=== PATIENT | male | born 1990 | race Caucasian/White ===

== ENCOUNTER 2017-07-21 10:56 | Inpatient (IN) | payer BC, MEDICAID ==
--- NOTE | 2017-07-21 11:33 | ED ---
Psych HPI - General Chief Complaint: Psychiatric Symptoms Stated Complaint: MENTAL HEALTH Time Seen by Provider: 07/21/17 11:11 Source: patient, RN notes reviewed Mode of arrival: ambulatory Limitations: no limitations - History of Present Illness Initial Comments: 27-year-old male presents emergency Department for psychiatric evaluation. Patient states he is severely depressed, mother states is always tearful. He does see his primary care physician which he receives Paxil. He states he used to be on Klonopin. 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 Patient has a bowel bladder incontinence or retention. Patient states that he does not currently feel suicidal he states that he is depressed throat times he thinks he may be easier. Patient is not homicidal. Patient denies any fever, chills, chest pain or shortness of breath. - Related Data Home Medications Medication Instructions Recorded Confirmed Meloxicam [Meloxicam] 15 mg PO DAILY 07/21/17 07/21/17 Methocarbamol [Robaxin] 1,500 mg PO Q8H PRN 07/21/17 07/21/17 PARoxetine HCL [Paxil] 10 mg PO DAILY 07/21/17 07/21/17 Allergies Allergy/AdvReac Type Severity Reaction Status Date / Time Penicillins Allergy Unknown Verified 07/21/17 11:57 Childhood Review of Systems ROS Statement: Those systems with pertinent positive or pertinent negative responses have been documented in the HPI. ROS Other: All systems not noted in ROS Statement are negative. Past Medical History Past Medical History: Hypertension History of Any Multi-Drug Resistant Organisms: None Reported Past Surgical History: No Surgical Hx Reported Past Psychological History: ADD/ADHD, Anxiety, Bipolar, Depression Smoking Status: Current every day smoker Past Alcohol Use History: Occasional Past Drug Use History: Marijuana, Opiates General Exam Limitations: no limitations General appearance: alert, in no apparent distress Head exam: Present: atraumatic, normocephalic, normal inspection Eye exam: Present: normal appearance, PERRL, EOMI. Absent: scleral icterus, conjunctival injection, periorbital swelling ENT exam: Present: normal exam, normal oropharynx, mucous membranes moist Neck exam: Present: normal inspection, full ROM. Absent: tenderness, meningismus, lymphadenopathy Respiratory exam: Present: normal lung sounds bilaterally. Absent: respiratory distress, wheezes, rales, rhonchi, stridor Cardiovascular Exam: Present: regular rate, normal rhythm, normal heart sounds. Absent: systolic murmur, diastolic murmur, rubs, gallop, clicks GI/Abdominal exam: Present: soft, normal bowel sounds. Absent: distended, tenderness, guarding, rebound, rigid Neurological exam: Present: alert, oriented X3, CN II-XII intact Psychiatric exam: Present: anxious, other (Patient is tearful) Skin exam: Present: warm, dry, intact, normal color. Absent: rash Course Vital Signs 07/21/17 11:05 Temperature 96.8 F L Pulse Rate 94 Respiratory 18 Rate Blood Pressure 134/84 O2 Sat by Pulse 100 Oximetry Medical Decision Making - Medical Decision Making 27-year-old male was on for psychiatric evaluation. Patient was evaluated by EPS case discussed with on-call psychiatry. Patient will be admitted to the hospital at this time for further care. - Lab Data Lab Results 07/21/17 Range/Units 11:20 Urine Opiates Screen Not Detected (NotDetected) Ur Oxycodone Screen Not Detected (NotDetected) Urine Methadone Screen Not Detected (NotDetected) Ur Propoxyphene Screen Not Detected (NotDetected) Ur Barbiturates Screen Not Detected (NotDetected) U Tricyclic Antidepress Not Detected (NotDetected) Ur Phencyclidine Scrn Not Detected (NotDetected) Ur Amphetamines Screen Not Detected (NotDetected) U Methamphetamines Scrn Not Detected (NotDetected) U Benzodiazepines Scrn Detected H (NotDetected) Urine Cocaine Screen Detected H (NotDetected) U Marijuana (THC) Screen Detected H (NotDetected) Disposition Clinical Impression: Drug abuse, Bipolar disorder, Psychosis Disposition: ADMITTED IP TO THIS [facility] Condition: Stable Is patient prescribed a controlled substance at d/c from ED?: No Referrals: None,Stated [Primary Care Provider] - 1-2 days
[2017-07-21 12:03] LABS: Amphetamine Screen,Urine Not Detected (NotDetected); Barbiturate Screen,Urine Not Detected (NotDetected); Benzodiazepines Screen,Urine Detected (NotDetected); Cocaine Screen,Urine Detected (NotDetected); Methadone Screen, Urine Not Detected (NotDetected); Opiate Screen,Urine Not Detected (NotDetected); Oxycodone Screen, Urine Not Detected (NotDetected); Phencyclidine Screen,Urine Not Detected (NotDetected); Tricyclic Antidepressant,Urine Not Detected (NotDetected); Urn Cannabinoid Scrn Detected (NotDetected)
[2017-07-21] MEDS ORDERED: IBUPROFEN 600 MG TAB PO STA (12:38)
[2017-07-21] MEDS ORDERED: ZIPRASIDONE 20 MG VIAL IM STA (13:40)
[2017-07-21] MEDS ORDERED: NICOTINE 21MG/24HR PATCH TRANSDERM STA (13:40)
[2017-07-21] MEDS ORDERED: MAG HYDROX/AL HYDROX/SIMETH 30 ML CUP PO PRN (15:37)
[2017-07-21] MEDS ORDERED: MAGNESIUM HYDROXIDE 2,400 MG/10 ML CUP PO PRN (15:37)
[2017-07-21] MEDS ORDERED: ZIPRASIDONE 20 MG VIAL IM PRN (15:37)
[2017-07-21] MEDS ORDERED: LORazepam 2 MG/ML INJ IM PRN (15:39)
[2017-07-21 15:56] LABS: Appearance,Urine Clear (Clear); Bilirubin,Urine Negative (Negative); Blood,Urine Negative (Negative); Color,Urine Yellow; Glucose,Urine (UA) Negative (Negative); Ketones,Urine Negative (Negative); Leukocyte Esterase,Urine Negative (Negative); Nitrite,Urine Negative (Negative); Protein,Urine Negative (Negative); Urobilinogen,Urine <2.0 mg/dL (<2.0)
--- NOTE | 2017-07-21 20:12 | P.PN ---
Progress Note - Text Progress Note Date: 07/21/17 I was notified by RN to evaluate the patient for medical consultation and management. However patient has been deeply sedated due to aggressive behavior earlier and unable to participate in the interview at this time. Staff was made aware to notify sound physicians once the patient wakes up and is more stable for the interview and evaluation.
[2017-07-21] MEDS: ACETAMINOPHEN TAB 325 MG TAB PO PRN (23:16)
[2017-07-21] MEDS: LORazepam 1 MG TAB PO PRN (23:18)
[2017-07-22 07:12] VITALS: BP 111/65; PULSE 62; RESP 14; TEMP 98
--- NOTE | 2017-07-22 07:13 | P.MDCNMH ---
History of Present Illness H&P Date: 07/22/17 Chief Complaint: Medical management 27-year-old male was brought to the hospital for psychiatric evaluation. His mother brought him to the hospital saying that he is severely depressed and tearful most of the time. Patient is currently on Paxil she's been taking for 6 years now. However when I asked the patient he claimed that he would likely heart yesterday drinking and taking Vicodin and his mother didn't like it and decided to bring him to the hospital. Patient denies any suicidal or homicidal ideation. Patient denies any physical or medical concerns except for chronic low back pain , he has not seen an orthopedic infantry operations specialist yet, but he's been seeing a chiropractor who is doing some physical therapy on him. Patient claims that this chronic low back pain is related to a remote injury while playing football. He denies any focal neurologic deficits like weakness numbness or tingling in his extremities Review of Systems Constitutional: Patient denies fever, denies chills, denies night sweating, denies significant weight changes Eyes: Patient denies visual changes, denies eye pain ENT: Patient denies ear pain, denies rhinorrhea, denies sore throat Cardiovascular: Patient denies chest pain, denies exertional dyspnea, denies peripheral leg edema, denies orthopnea, denies paroxysmal nocturnal dyspnea Respiratory:Patient denies cough, denies wheezing, denies shortness of breath Gastrointestinal: Patient denies diarrhea, denies constipation, denies nausea , denies vomiting, denies abdominal pain Genitourinary: Patient denies dysuria, denies hematuria, denies changes in urinary habits, denies genital lesions Musculoskeletal: Patient denies muscle pain, chronic low back pain Psychiatric: Patient reports depressed mood, denies suicidal ideation, denies anxiety Endocrine: Patient denies heat intolerance, denies cold intolerance, denies excessive thirst, denies polyuria Neurological: Patient denies focal neurologic deficits, denies weakness, denies numbness, denies tingling Hem/Lymphatic: Patient denies bleeding tendency, denies bruising, denies swollen lymph glands Allergic/Immun: Patient denies recent allergic reactions Skin: Patient denies rashes, denies pruritis, denies ulcers Past Medical History Past Medical History: Hypertension History of Any Multi-Drug Resistant Organisms: None Reported Past Surgical History: No Surgical Hx Reported Past Psychological History: ADD/ADHD, Anxiety, Bipolar, Depression Smoking Status: Current every day smoker Past Alcohol Use History: Occasional Past Drug Use History: Marijuana, Opiates - Past Family History Family Additional Family Medical History / Comment(s): Hypertension runs in the family Medications and Allergies Home Medications Medication Instructions Recorded Confirmed Type Meloxicam [Meloxicam] 15 mg PO DAILY 07/21/17 07/21/17 History Methocarbamol [Robaxin] 1,500 mg PO Q8H PRN 07/21/17 07/21/17 History PARoxetine HCL [Paxil] 10 mg PO DAILY 07/21/17 07/21/17 History Allergies Allergy/AdvReac Type Severity Reaction Status Date / Time Penicillins Allergy Unknown Verified 07/21/17 11:57 Childhood Physical Exam Vitals: Vital Signs Temp Pulse Pulse Resp BP BP Pulse Ox 07/21/17 15:20 72 18 117/63 93 L 07/21/17 11:05 96.8 F L 94 18 134/84 100 Constitutional: No acute distress, conversant, pleasant Eyes: Anicteric sclerae, moist conjunctiva, no lid-lag Pupils equal round reactive to light ENMT: NC/AT Oropharynx clear, no erythema, or exudates Neck: Supple, FROM, no masses, or JVD No carotid bruits No thyromegaly Lungs: Clear to auscultation Clear to percussion Normal respiratory effort, no accessory muscle use Cardiovascular: Heart regular in rate and rhythm, No murmurs, gallops, or rubs No peripheral edema Abdominal: Soft Nontender, no guarding, rebound or rigidity Abdomen moving with respiration Normoactive bowel sounds No hepatomegaly, No splenomegaly No palpable mass No abdominal wall hernia noted Skin: Normal temperature, tone, texture, turgor No induration No subcutaneous nodules No rash, lesions No ulcers Extremities: No digital cyanosis No clubbing Pedal pulses intact and symmetrical Radial pulses intact and symmetrical No calf tenderness Psychiatric: Alert and oriented to person, place and time Appropriate affect fair judgment Neuro Muscles Strength 5/5 in all 4 extremities Sensation to light touch grossly present throughout No focal sensory deficits Lymphatics: no palpable cervical or supraclavicular , or inguinal lymph nodes Cranial Nerve Examination - Cranial Nerves Cranial Nerve II- Optic: Intact Cranial Nerve III- Oculomotor: Intact Cranial Nerve IV- Trochlear: Intact Cranial Nerve V- Trigeminal: Intact Cranial Nerve - Abducens: Intact Cranial Nerve VII- Facial: Intact Cranial Nerve VIII- Auditory: Intact Cranial Nerve IX- Glossopharyngeal: Intact Cranial Nerve X- Vagus: Intact Cranial Nerve XI- Accessory: Intact Cranial Nerve XII- Hypoglossal: Intact Results Labs: Abnormal Lab Results - Last 24 Hours (Table) 07/21/17 Range/Units 11:20 U Benzodiazepines Scrn Detected H (NotDetected) Urine Cocaine Screen Detected H (NotDetected) U Marijuana (THC) Screen Detected H (NotDetected) Assessment and Plan Plan: 27-year-old male with history of depression, was brought to the hospital for further evaluation by psychiatry due to severe depression. Patient denies any suicidal ideation. #Depression Management per psychiatry #Chronic low back pain I recommended the patient follow up with orthopedic spine as an outpatient #Tobacco smoking Patient counseled to quit smoking Nicotine replacement therapy offered #Alcohol abuse drinking Monitor for alcohol withdrawal symptoms Counseled to quit alcohol especially when on psychotropic medications #Polysubstance abuse Patient urine drug screen was positive for multiple substances Patient denies any recent use Patient again strongly counseled to quit drug of abuse #DVT prophylaxis low risk and ambulatory Thank you for allowing us to participate in the care of this patient. We will follow peripherally. Do not hesitate to contact us with questions. Someone can be reached from the [facility] hospitalist group at all hours of the day at [phone].
[2017-07-22 08:45] LABS: Basophils % (A) 1 %; Eosinophils # (A) 0.2 k/uL (0-0.7); Eosinophils % (A) 3 %; HCT 45.9 % (39.0-53.0); Lymphocytes # (A) 1.8 k/uL (1.0-4.8); Lymphocytes % (A) 25 %; MCH 30.2 pg (25.0-35.0); MCHC 32.7 g/dL (31.0-37.0); MCV 92.2 fL (80.0-100.0); Mean Platelet Volume 7.4; Monocytes # (A) 0.5 k/uL (0-1.0); Monocytes % (A) 7 %; Neutrophils # (A) 4.3 k/uL (1.3-7.7); Neutrophils % (A) 62 %; Platelet Count 273 k/uL (150-450); RBC 4.97 m/uL (4.30-5.90); RDW 12.3 % (11.5-15.5)
[2017-07-22 08:56] LABS: ALT 40 U/L (21-72); AST 39 U/L (17-59); Albumin 4.5 g/dL (3.5-5.0); Alkaline Phosphatase 66 U/L (38-126); Anion Gap 12 mmol/L; Blood Urea Nitrogen 15 mg/dL (9-20); Calcium 9.9 mg/dL (8.4-10.2); Carbon Dioxide 26 mmol/L (22-30); Chloride 102 mmol/L (98-107); Cholesterol 199 mg/dL (<200); Glucose 92 mg/dL (74-99); HDL Cholesterol 67 mg/dL (40-60); LDL Cholesterol,Calculated 111 mg/dL (0-99); Potassium 4.4 mmol/L (3.5-5.1); Sodium 140 mmol/L (137-145); Total Bilirubin 0.8 mg/dL (0.2-1.3); Total Protein 6.9 g/dL (6.3-8.2); Triglycerides 105 mg/dL (<150)
[2017-07-22] MEDS ORDERED: MELOXICAM 7.5 MG TAB PO SCH (09:00)
[2017-07-22] MEDS ORDERED: NICOTINE 14MG/24HR PATCH TRANSDERM SCH (09:00)
[2017-07-22] MEDS: LORazepam 1 MG TAB PO PRN (09:09)
[2017-07-22] MEDS: ACETAMINOPHEN TAB 325 MG TAB PO PRN (10:40)
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
--- NOTE | 2017-07-22 11:59 | P.DS ---
Providers Date of admission: 07/21/17 14:36 Expected date of discharge: 07/22/17 Attending physician: July Gillette MD Consults: 07/21/17 15:37 Consult Physician Routine Consulting Provider: Amanda Physician Consult Reason/Comments: Follow up H & P Do you want consulting provider notified?: Yes Primary care physician: Stated None Hospital Course: Discharge Diagnosis: Alcohol use disorder, mild; sedative use disorder, mild; cannabis use disorder mild; sedative withdrawal with perceptual disturbances; alcohol withdrawal with perceptual disturbances; social anxiety disorder by history Reason for Admission: Patient is a 27-year-old male who was brought to the emergency room by his mother because she noticed that he was talking to himself. She states that he had also not been eating or sleeping for several days. Patient reports that he had gone on a binge from Wednesday until Wednesday evening drinking alcohol, using Xanax and also used cocaine. He reports that he drank probably a fifth of alcohol and used 5 mg of Xanax and states that he also used cocaine something that he typically does not do. He states he uses alcohol and Xanax usually 3-4 times a month. Patient states that he went home from his friend's house where he had been using and his mother noticed that he was talking to no one, patient states he does not recall much other than that he was talking to his cat who wasn't there. Patient states that he had not been eating or sleeping from Wednesday through Wednesday and states that he started to try to cook when he came home and wasn't paying attention and apparently left the stove on. He reports that this is the first time he has used cocaine combined with alcohol and Xanax. Patient states he doesn't recall much else about those 2 days. Patient states that he has been using alcohol since age 19 , he states he restarted using it at 24 and drinks about a fifth a week. States that he typically uses about 5 mg of Xanax 2-3 times a month. States that he also uses marijuana on a daily basis to control his anxiety. Patient states that he has been on Paxil since the age of 22 for anxiety which she describes as an elevated heart rate and shaking and states that it occurs mostly when he is around people or needs to talk to people. He states that he has been using the Paxil with good relief stating he's less anxious and no longer has an increased heart rate. Patient states that he was on Xanax in the past for his anxiety, was prescribed it when he was 19 years of age. Patient does not endorse a history of suicidal ideation and denies any prior suicide attempts and does not endorse a symptoms of depression, nor telly nor psychosis in the past. Patient states that he has never had the symptoms that he had over the last 2 days before. Mental status on Admission: Appearance/Attitude: Patient is casually dressed, makes good eye contact and is cooperative. Behavior: Patient does not exhibit any psychomotor agitation or retardation. Speech/Language: Patient's speech is spontaneous of normal volume and rhythm and he is coherent Thought Process: Patient is goal-directed there is no evidence of loose association or flight of ideas Thought Content: Patient denies any auditory or visual hallucinations no delusions or paranoid ideation or elicited. Patient states that he doesn't have a clear memory of what occurred over the last several days, stating that he recalls talking to his cat when he Was not present and also leaving the stove on when he was trying to cook something for himself and then went and passed out. Patient states that he slept well here after receiving medication as well as his appetite is good. Suicidal/Homicidal Ideation: Patient denies any current suicidal or homicidal ideation Sensorium/Cognition: Patient is alert and oriented to person, place, and time and his recent and remote memory are grossly intact. Mood/Affect: Patient's mood is pleasant and his affect is appropriate Insight/Judgment: Patient's insight and judgment are fair Hospital Course: Patient was admitted on a voluntary basis, placed on routine observation in group and activity therapy were also ordered. Patient had routine laboratory studies and a medical consultation. Patient was continued on his meloxicam for his back pain. Patient was placed on Ativan on an as- needed basis for symptoms of withdrawal. Patient was given Ativan and Geodon in the emergency room prior to coming upstairs to the psychiatric unit and was sleeping through the evening. Patient on awakening this morning reported no further symptoms of talking to objects that weren't there, he states that he returned to his baseline mental status, he was not exhibiting any paranoid ideation, no depressive symptoms, no manic symptoms and he denied any auditory or visual hallucinations. Patient reported that he has also been treated in the past for social anxiety and reports taking Paxil 10 mg with good results. Patient had been using Xanax, alcohol and cocaine for 2 days prior to his admission. Patient reported that he was not having any suicidal ideation and felt ready for discharge. Allergies Penicillins Allergy (Verified 07/21/17 11:57) Unknown Childhood Laboratory Last Values WBC 7.0 k/uL (3.8-10.6) 07/22/17 08:23 RBC 4.97 m/uL (4.30-5.90) 07/22/17 08:23 Hgb 15.0 gm/dL (13.0-17.5) 07/22/17 08:23 Hct 45.9 % (39.0-53.0) 07/22/17 08:23 MCV 92.2 fL (80.0-100.0) 07/22/17 08:23 MCH 30.2 pg (25.0-35.0) 07/22/17 08:23 MCHC 32.7 g/dL (31.0-37.0) 07/22/17 08:23 RDW 12.3 % (11.5-15.5) 07/22/17 08:23 Plt Count 273 k/uL (150-450) 07/22/17 08:23 Neutrophils % 62 % 07/22/17 08:23 Lymphocytes % 25 % 07/22/17 08:23 Monocytes % 7 % 07/22/17 08:23 Eosinophils % 3 % 07/22/17 08:23 Basophils % 1 % 07/22/17 08:23 Neutrophils # 4.3 k/uL (1.3-7.7) 07/22/17 08:23 Lymphocytes # 1.8 k/uL (1.0-4.8) 07/22/17 08:23 Monocytes # 0.5 k/uL (0-1.0) 07/22/17 08:23 Eosinophils # 0.2 k/uL (0-0.7) 07/22/17 08:23 Basophils # 0.0 k/uL (0-0.2) 07/22/17 08:23 Sodium 140 mmol/L (137-145) 07/22/17 08:23 Potassium 4.4 mmol/L (3.5-5.1) 07/22/17 08:23 Chloride 102 mmol/L (98-107) 07/22/17 08:23 Carbon Dioxide 26 mmol/L (22-30) 07/22/17 08:23 Anion Gap 12 mmol/L 07/22/17 08:23 BUN 15 mg/dL (9-20) 07/22/17 08:23 Creatinine 0.87 mg/dL (0.66-1.25) 07/22/17 08:23 Est GFR (CKD-EPI)AfAm >90 (>60 ml/min/1.73 sqM) 07/22/17 08:23 Est GFR (CKD-EPI)NonAf >90 (>60 ml/min/1.73 sqM) 07/22/17 08:23 Glucose 92 mg/dL (74-99) 07/22/17 08:23 Calcium 9.9 mg/dL (8.4-10.2) 07/22/17 08:23 Total Bilirubin 0.8 mg/dL (0.2-1.3) 07/22/17 08:23 AST 39 U/L (17-59) 07/22/17 08:23 ALT 40 U/L (21-72) 07/22/17 08:23 Alkaline Phosphatase 66 U/L (38-126) 07/22/17 08:23 Total Protein 6.9 g/dL (6.3-8.2) 07/22/17 08:23 Albumin 4.5 g/dL (3.5-5.0) 07/22/17 08:23 Triglycerides 105 mg/dL (<150) 07/22/17 08:23 Cholesterol 199 mg/dL (<200) 07/22/17 08:23 LDL Cholesterol, Calc 111 mg/dL (0-99) H 07/22/17 08:23 HDL Cholesterol 67 mg/dL (40-60) H 07/22/17 08:23 TSH 1.150 mIU/L (0.465-4.680) 07/22/17 08:23 Urine Color Yellow 07/21/17 11:20 Urine Appearance Clear (Clear) 07/21/17 11:20 Urine pH 6.0 (5.0-8.0) 07/21/17 11:20 Ur Specific [place] 1.010 (1.001-1.035) 07/21/17 11:20 Urine Protein Negative (Negative) 07/21/17 11:20 Urine Glucose (UA) Negative (Negative) 07/21/17 11:20 Urine Ketones Negative (Negative) 07/21/17 11:20 Urine Blood Negative (Negative) 07/21/17 11:20 Urine Nitrite Negative (Negative) 07/21/17 11:20 Urine Bilirubin Negative (Negative) 07/21/17 11:20 Urine Urobilinogen <2.0 mg/dL (<2.0) 07/21/17 11:20 Ur Leukocyte Esterase Negative (Negative) 07/21/17 11:20 Urine Opiates Screen Not Detected (NotDetected) 07/21/17 11:20 Ur Oxycodone Screen Not Detected (NotDetected) 07/21/17 11:20 Urine Methadone Screen Not Detected (NotDetected) 07/21/17 11:20 Ur Propoxyphene Screen Not Detected (NotDetected) 07/21/17 11:20 Ur Barbiturates Screen Not Detected (NotDetected) 07/21/17 11:20 U Tricyclic Antidepress Not Detected (NotDetected) 07/21/17 11:20 Ur Phencyclidine Scrn Not Detected (NotDetected) 07/21/17 11:20 Ur Amphetamines Screen Not Detected (NotDetected) 07/21/17 11:20 U Methamphetamines Scrn Not Detected (NotDetected) 07/21/17 11:20 U Benzodiazepines Scrn Detected (NotDetected) H 07/21/17 11:20 Urine Cocaine Screen Detected (NotDetected) H 07/21/17 11:20 U Marijuana (THC) Screen Detected (NotDetected) H 07/21/17 11:20 Discharge Mental Status: Appearance/Attitude: Patient is casually dressed, makes good eye contact and is cooperative. Behavior: Patient does not exhibit any psychomotor agitation or retardation. Speech/Language: Patient's speech is spontaneous of normal volume and rhythm and he is coherent Thought Process: Patient is goal-directed there is no evidence of loose association or flight of ideas Thought Content: Patient denies any auditory or visual hallucinations no delusions or paranoid ideation or elicited. Patient states that he doesn't have a clear memory of what occurred over the last several days, stating that he recalls talking to his cat when he Was not present and also leaving the stove on when he was trying to cook something for himself and then went and passed out. Patient states that he slept well here after receiving medication as well as his appetite is good. Suicidal/Homicidal Ideation: Patient denies any current suicidal or homicidal ideation Sensorium/Cognition: Patient is alert and oriented to person, place, and time and his recent and remote memory are grossly intact. Mood/Affect: Patient's mood is pleasant and his affect is appropriate Insight/Judgment: Patient's insight and judgment are fair Risk Assessment: Patient's risk for self harm is moderate should he continue to use alcohol and drugs and not be compliant with follow-up Discharge Plan: Patient will be discharged to return home to live with his mother. He will continue on Paxil 10 mg as an outpatient basis and return to his Robaxin, meloxicam and Zanaflex for his back pain. Patient will follow-up with [facility] going to their outpatient intensive rehab program and has an appointment to begin tomorrow. Patient was encouraged to remain sober and avoid all alcohol and drugs as well as beginning to attend AA meetings on a daily basis. Patient was not given any prescriptions on discharge as he states this medication at home. Patient Condition at Discharge: Stable Plan - Discharge Summary New Discharge Prescriptions: Continue PARoxetine HCL [Paxil] 10 mg PO DAILY Methocarbamol [Robaxin] 1,500 mg PO Q8H PRN PRN Reason: Muscle Pain Meloxicam 15 mg PO DAILY Discharge Medication List Meloxicam 15 mg PO DAILY 07/21/17 [History] Methocarbamol [Robaxin] 1,500 mg PO Q8H PRN 07/21/17 [History] PARoxetine HCL [Paxil] 10 mg PO DAILY 07/21/17 [History] Follow up Appointment(s)/Referral(s): [facility] [Other] - 07/23/17 1:00 pm None,Stated [Primary Care Provider] - 1-2 days Discharge Disposition: HOME SELF-CARE
[2017-07-22 18:51] LABS: Hemoglobin A1C 5.3 % (4.0-6.0)
== END 2017-07-22 12:20 | disposition home or self-care (01) | DRG 885 ==
LOC: EC 10:56 → 3MHU 14:36
PROVIDERS: ADMIT Psychiatry & Neurology Psychiatry; ATTEND Psychiatry & Neurology Psychiatry
DX: F31.9 Bipolar disorder, unspecified (principal); F13.232 Sedative, hypnotic or anxiolytic dependence with withdrawal with perceptual disturbance; F10.232 Alcohol dependence with withdrawal with perceptual disturbance; F40.10 Social phobia, unspecified; F12.90 Cannabis use, unspecified, uncomplicated; M54.5 Low back pain; G89.29 Other chronic pain; F90.9 Attention-deficit hyperactivity disorder, unspecified type; I10 Essential (primary) hypertension; F41.9 Anxiety disorder, unspecified; Z79.899 Other long term (current) drug therapy; Z81.8 Family history of other mental and behavioral disorders; Z71.6 Tobacco abuse counseling; Z71.41 Alcohol abuse counseling and surveillance of alcoholic
CPT/HCPCS: 80053; 80061; 80306; 81003; 82075; 83036; 84443; 85025; 96372; 99285

== ENCOUNTER → 2018-04-16 | Outpatient (CLI) | payer OTHER ==
--- NOTE | 2018-04-16 09:13 | MR ---
MR lumbar spine wo con Low back pain for years, getting worse, no previous MRI Multiplanar, multiecho imaging of the lumbar spine was obtained without contrast on a 3 Lisa magnet. REFERENCE: None. FINDINGS: Paraspinal soft tissues are normal. Vertebral body height and alignment are maintained. There is a prominent Schmorl's node in the superi or endplate of L2. Cord signal is maintained. The conus ends normally at the level of the L1-2 disc. At T12-L1, no definite abnormality is seen. At L1-2, there is disc space loss and disc desiccation. Intervertebral foramina appear reasonably wel l-maintained. There is a bilobed disc displacement. There is minimal hypertrophic change and capsulit is within the facets. At L2-3, the intervertebral foramina are well maintained. There is no significant compressive discopa thy. There is minimal hypertrophic change and capsulitis within the facets. At L3-4, there is minimal hypertrophic change and capsulitis within the facets. At L4-5, there is minimal capsulitis and hypertrophic change in the facets. At L5-S1, the intervertebral foramina are well maintained. There is a left paracentral disc protrusio n deforming the thecal sac and impinging upon the traversing left S1 nerve root. This appears to spar e the exiting L5 nerve root.. IMPRESSION: 1. LEFT PARACENTRAL DISC PROTRUSION, L5-S1 IMPINGING UPON THE LEFT S1 NERVE ROOT. 2. DIFFUSE FACET ARTHROPATHY. 3. PROMINENT SCHMORL'S NODE IN THE SUPERIOR ENDPLATE OF L2.
== END | disposition home or self-care (01) ==
LOC: RADMRIMAIN 08:09
PROVIDERS: ATTEND Family Medicine
DX: M51.17 Intervertebral disc disorders with radiculopathy, lumbosacral region (principal); M46.96 Unspecified inflammatory spondylopathy, lumbar region; M51.46 Schmorl's nodes, lumbar region
CPT/HCPCS: 72148

== ENCOUNTER 2018-08-30 14:05 | Emergency (ER) | payer OTHER ==
[2018-08-30] MEDS ORDERED: LIDOCAINE 5% PATCH TOPICAL STA (16:26)
== END 2018-08-30 16:30 ==
LOC: EC 14:05
DX: M54.5 Low back pain (principal); M62.830 Muscle spasm of back; F41.9 Anxiety disorder, unspecified; F32.9 Major depressive disorder, single episode, unspecified; F17.200 Nicotine dependence, unspecified, uncomplicated; Z79.899 Other long term (current) drug therapy
CPT/HCPCS: 99283

== ENCOUNTER 2018-11-19 07:30 | Emergency (ER) | payer OTHER ==
[2018-11-19] MEDS ORDERED: methylPREDNISolone SOD SUCCI 125 MG/2 ML VIAL IM ONE (07:45)
[2018-11-19] MEDS ORDERED: ORPHENADRINE 30 MG/ML 2 ML VIAL IM STA (07:45)
[2018-11-19] MEDS ORDERED: KETOROLAC 60 MG/2 ML VIAL IM STA (07:45)
--- NOTE | 2018-11-19 07:48 | ED ---
Back Pain HPI - General Chief Complaint: Back Pain/Injury Stated Complaint: back pain Time Seen by Provider: 11/19/18 07:39 Source: patient, RN notes reviewed, old records reviewed Limitations: no limitations - History of Present Illness Initial Comments: Is a 28-year-old male presents emergency department today for acute exacerbation of chronic back pain. 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 Patient reports he felt a pop and snap in his back. Patient reports that since that time has had increased pain rating down his right leg. He denies saddle anesthesias. Patient reports that he is seen by [place] [facility] specialist Dr. Sam. He started prescribed [place] and naproxen for pain. Patient states that he has had no abdominal pain. Denies changes in urination. - Related Data Home Medications Medication Instructions Recorded Confirmed L.acidoph,Paracasei, B.lactis 1 cap PO DAILY 05/26/18 11/19/18 [Probiotic] Baclofen [Lioresal] 20 mg PO BID 11/19/18 11/19/18 HYDROcodone/APAP 7.5-325MG [[place] 1 tab PO TID PRN 11/19/18 11/19/18 7.5-325] Naproxen 500 mg PO BID PRN 11/19/18 11/19/18 PARoxetine [Paxil] 20 mg PO DAILY 11/19/18 11/19/18 Previous Rx's Medication Instructions Recorded Cyclobenzaprine [Flexeril] 10 mg PO TID #20 tab 11/19/18 Dexamethasone 0.75 mg PO DAILY #12 tab 11/19/18 Allergies Allergy/AdvReac Type Severity Reaction Status Date / Time Penicillins Allergy Rash/Hives Verified 11/19/18 08:22 Review of Systems ROS Statement: Those systems with pertinent positive or pertinent negative responses have been documented in the HPI. ROS Other: All systems not noted in ROS Statement are negative. Past Medical History Past Medical History: Asthma, Hypertension, Musculoskeletal Disorder Additional Past Medical History / Comment(s): ON RX FOR HTN IN PAST. Change in bowel movements and constipation, CHRONIC. HERNIATED DISCS, SEEN BY [facility] RECENTLY. recent sinus infection tx with antibiotics and steroid pack 03/2018. History of Any Multi-Drug Resistant Organisms: None Reported Past Surgical History: No Surgical Hx Reported Additional Past Surgical History / Comment(s): wisdom teeth Past Anesthesia/Blood Transfusion Reactions: Previous Problems w/ Anesthesia Additional Past Anesthesia/Blood Transfusion Reaction / Comment(s): had difficulty when coming out of anesthesia with emotional response and crying Past Psychological History: ADD/ADHD, Anxiety, Bipolar, Depression Smoking Status: Current every day smoker Past Alcohol Use History: None Reported Past Drug Use History: None Reported - Past Family History Family Additional Family Medical History / Comment(s): Hypertension runs in the family General Exam - General Exam Comments Initial Comments: 28-year-old male. No distress. Limitations: no limitations General appearance: alert, in no apparent distress Head exam: Present: atraumatic, normocephalic, normal inspection Eye exam: Present: normal appearance, PERRL, EOMI. Absent: scleral icterus, conjunctival injection, periorbital swelling ENT exam: Present: normal exam, mucous membranes moist Neck exam: Present: normal inspection. Absent: tenderness, meningismus, lymphadenopathy Respiratory exam: Present: normal lung sounds bilaterally. Absent: respiratory distress, wheezes, rales, rhonchi, stridor Cardiovascular Exam: Present: regular rate, normal rhythm, normal heart sounds. Absent: systolic murmur, diastolic murmur, rubs, gallop, clicks GI/Abdominal exam: Present: soft, normal bowel sounds. Absent: distended, tenderness, guarding, rebound, rigid Extremities exam: Present: normal inspection, full ROM, normal capillary refill. Absent: tenderness, pedal edema, joint swelling, calf tenderness Back exam: Present: normal inspection Neurological exam: Present: alert, oriented X3, CN II-XII intact Psychiatric exam: Present: normal affect Skin exam: Present: warm, dry, intact, normal color. Absent: rash Course Vital Signs 11/19/18 07:34 Temperature 97.5 F L Pulse Rate 77 Respiratory 18 Rate Blood Pressure 138/90 O2 Sat by Pulse 100 Oximetry Medical Decision Making - Medical Decision Making Patient is a 28-year-old male presents to return today for acute exacerbation of chronic back pain. He states it felt like a pop and twist when he was lifting at work. This time patient's lumbar spine x-rays negative for any acute process. Assessment tenderness over L4-L5. Patient given I am slight Medrol Toradol Norflex. I discussed the Patient should take this at home pain medicine. We'll prescribe steroids and anti-inflammatory medicine for Patient. Discussed appropriate PCP follow-up. - Radiology Data Radiology results: report reviewed Normal lumbar spine x-ray. Disposition Clinical Impression: Acute exacerbation of chronic low back pain Disposition: HOME SELF-CARE Condition: Good Instructions (If sedation given, give patient instructions): Acute Low Back Pain (ED) Additional Instructions: Patient advised to have close follow-up with primary care doctor. Take medication as perscribed. Prescriptions: Dexamethasone 0.75 mg PO DAILY #12 tab Cyclobenzaprine [Flexeril] 10 mg PO TID #20 tab Is patient prescribed a controlled substance at d/c from ED?: No Referrals: Diane Jesus DO [Primary Care Provider] - 1-2 days Time of Disposition: 08:37
--- NOTE | 2018-11-19 08:27 | XR ---
EXAMINATION TYPE: XR lumbar spine 2 or 3V DATE OF EXAM: 11/19/2018 COMPARISON: None HISTORY: Pain TECHNIQUE: Three-view lumbar spine FINDINGS: There 5 lumbar-type vertebral bodies. The L1 transverse processes articulating. Pedicles ar e intact. Disc heights are preserved. Vertebral body heights are preserved. Alignment is normal. IMPRESSION: 1. No acute osseous abnormality three-view lumbar spine.
[2018-11-19 08:56] VITALS: BP 136/88; PULSE 78; RESP 14; TEMP 98.6
== END 2018-11-19 08:50 | disposition home or self-care (01) ==
LOC: EC 07:30
DX: G89.29 Other chronic pain (principal); M54.5 Low back pain; F41.9 Anxiety disorder, unspecified; F17.200 Nicotine dependence, unspecified, uncomplicated; Z79.899 Other long term (current) drug therapy; Z88.0 Allergy status to penicillin; Z53.29 Procedure and treatment not carried out because of patient's decision for other reasons
CPT/HCPCS: 72100; 99284; 96372 ×2; J2360; J2930

== ENCOUNTER 2019-07-25 13:05 | Emergency (ER) | payer OTHER ==
[2019-07-25 13:10] VITALS: BP 133/76; PULSE 107; RESP 20; TEMP 99.7
[2019-07-25] MEDS ORDERED: DEXAMETHASONE 4 MG TAB PO STA (13:57)
[2019-07-25] MEDS ORDERED: CLINDAMYCIN 150 MG CAP PO STA (14:14)
[2019-07-25] MEDS ORDERED: ACETAMINOPHEN TAB 325 MG TAB PO STA (14:14)
--- NOTE | 2019-07-25 14:14 | ED ---
ENT HPI - General Chief complaint: ENT Stated complaint: fever/sore throat Time Seen by Provider: 07/25/19 13:15 Source: patient Mode of arrival: ambulatory Limitations: no limitations - History of Present Illness Initial comments: 29-year-old male presenting today for chief complaint of sore throat and enlarged tonsils. Patient states his history of large tonsils. The stones. Patient states the past 2 days he has noticed pain pain with swallowing states it feels like his swallowing glass. Patient states she has had a fever for the past day T-max of 102.2. Patient denies any cough congestion body aches or shortness of breath. Patient states it feels similar 20s of pharyngitis in the past. Patient states he was supposed to see ENT when he was a child but never did> patient has no additional complaints, no diarrhea, abdominal pain or vomiting. He denies drooling, inability to tolerate oral intake or voice changes. Patient does not appear in distress on arrival. Has low grade fever, HR slightly elevated. But he appears well nontoxic, no distress. - Related Data Home Medications Medication Instructions Recorded Confirmed L.acidoph,Paracasei, B.lactis 1 cap PO DAILY 05/26/18 11/19/18 [Probiotic] Baclofen [Lioresal] 20 mg PO BID 11/19/18 11/19/18 HYDROcodone/APAP 7.5-325MG [[place] 1 tab PO TID PRN 11/19/18 11/19/18 7.5-325] Naproxen 500 mg PO BID PRN 11/19/18 11/19/18 PARoxetine [Paxil] 20 mg PO DAILY 11/19/18 11/19/18 Previous Rx's Medication Instructions Recorded Cyclobenzaprine [Flexeril] 10 mg PO TID #20 tab 11/19/18 Dexamethasone 0.75 mg PO DAILY #12 tab 11/19/18 Clindamycin [Cleocin] 300 mg PO Q6H 7 Days #56 capsule 07/25/19 Allergies Allergy/AdvReac Type Severity Reaction Status Date / Time Penicillins Allergy Rash/Hives Verified 07/25/19 13:09 Review of Systems ROS Statement: Those systems with pertinent positive or pertinent negative responses have been documented in the HPI. ROS Other: All systems not noted in ROS Statement are negative. Past Medical History Past Medical History: Asthma, Hypertension, Musculoskeletal Disorder Additional Past Medical History / Comment(s): ON RX FOR HTN IN PAST. Change in bowel movements and constipation, CHRONIC. HERNIATED DISCS, SEEN BY [facility] RECENTLY. recent sinus infection tx with antibiotics and steroid pack 03/2018. History of Any Multi-Drug Resistant Organisms: None Reported Past Surgical History: No Surgical Hx Reported Additional Past Surgical History / Comment(s): wisdom teeth Past Anesthesia/Blood Transfusion Reactions: Previous Problems w/ Anesthesia Additional Past Anesthesia/Blood Transfusion Reaction / Comment(s): had difficulty when coming out of anesthesia with emotional response and crying Past Psychological History: ADD/ADHD, Anxiety, Bipolar, Depression Smoking Status: Current every day smoker Past Alcohol Use History: None Reported Past Drug Use History: None Reported - Past Family History Family Additional Family Medical History / Comment(s): Hypertension runs in the family General Exam - General Exam Comments Initial Comments: General: The patient is awake and alert, in no distress, and does not appear acutely ill. Eye: Pupils are equal, round and reactive to light, extra-ocular movements are intact. No nystagmus. There is normal conjunctiva bilaterally. No signs of icterus. Ears, nose, mouth and throat: There are moist mucous membranes oropharynx is erythematous with bilateral tonsillar enlargement. No evidence of peritonsillar abscess is evident on direct visualization. Patient has tonsillar exudates. Patient uvula midline, mild uvulitis. Neck supple, there is no tenderness or JVD. No anterior or posterior lymphadenopathy. No tripoding no drooling no trismus. Patient is tolerating oral intake without difficulty. Cardiovascular: There is a regular rate and rhythm. No murmur, rub or gallop is appreciated. Respiratory: Lungs are clear to auscultation, respirations are non-labored, breath sounds are equal. No wheezes, stridor, rales, or rhonchi. Musculoskeletal: Normal ROM, no tenderness. Strength 5/5. Sensation intact. Radial pulses equal bilaterally 2+. Neurological: A&O x 3. CN II-XII intact grossly, There are no obvious motor or sensory deficits. Coordination appears grossly intact. Speech is normal. Skin: Skin is warm and dry and no rashes or lesions are noted. Psychiatric: Cooperative, appropriate mood & affect, normal judgment. Limitations: no limitations Course Vital Signs 07/25/19 13:06 Temperature 99.7 F H Pulse Rate 107 H Respiratory 20 Rate Blood Pressure 133/76 O2 Sat by Pulse 97 Oximetry Medical Decision Making - Medical Decision Making 29-year-old male presenting today for chief complaint of sore throat. Patient has tonsillar exudates. Redness uvula is midline no evidence of peritonsillar abscess. Patient strep rapid (-). Culture pending. Covid 19 (-). Patient will be initiated on clindamycin given his PCN allergy. Patient is to f/u with ENT, return parameters were discussed at great length> patient verbalized understanding. Discussed case wtih attending patient discharged appearing well. - Lab Data Lab Results 07/25/19 Range/Units 13:40 Coronavirus (PCR) Not Detected (Not Detectd) Group A Strep Rapid Negative (Negative) Disposition Clinical Impression: Pharyngitis, Hx of fever Disposition: HOME SELF-CARE Condition: Good Additional Instructions: Please use medication as discussed. Please follow-up with family doctor in the next 2 days, ENT in next week. Please return to emergency room if the symptoms increase or worsen or for any other concerns. Prescriptions: Clindamycin [Cleocin] 300 mg PO Q6H 7 Days #56 capsule Is patient prescribed a controlled substance at d/c from ED?: No Referrals: Diane Jesus DO [Primary Care Provider] - 1-2 days Orlando Reed MD [STAFF PHYSICIAN] - 1-2 days Time of Disposition: 14:13
== END 2019-07-25 14:21 | disposition home or self-care (01) ==
LOC: EC 13:05
DX: Z03.818 Encounter for observation for suspected exposure to other biological agents ruled out (principal); J02.9 Acute pharyngitis, unspecified; F41.9 Anxiety disorder, unspecified; F31.9 Bipolar disorder, unspecified; F17.200 Nicotine dependence, unspecified, uncomplicated; Z79.899 Other long term (current) drug therapy; Z88.0 Allergy status to penicillin
CPT/HCPCS: 87081; 87430; 87635; 99283; J8540

== ENCOUNTER → 2019-08-29 | Outpatient (CLI) | payer OTHER | END | disposition home or self-care (01) | LOC: LABWHC1 08:32 | PROVIDERS: ATTEND Surgery | DX: Z11.59 Encounter for screening for other viral diseases (principal) ==

== ENCOUNTER 2019-09-01 10:48 | Day surgery (SDC) | payer OTHER ==
[2019-08-31 11:09] VITALS: BMI 29.6
[~2019-09-01 10:48] MED LIST: LACTATED RINGERS 1,000 ML IV SCH
[2019-09-01 11:14] VITALS: RESP 18; TEMP 97.7
[2019-09-01] MEDS ORDERED: LIDOCAINE 1% (10MG/ML) FOR IV START INTRADERMA ONE (11:15)
[2019-09-01 11:20] LABS: Glucose,Whole Blood 100 mg/dL (75-99)
--- NOTE | 2019-09-01 12:06 | P.GSHP ---
History of Present Illness H&P Date: 09/01/19 Chief Complaint: Constipation This is a 29-year-old male been sick for colonoscopy. Patient has issues constipation and irritable bowel syndrome. Past Medical History Past Medical History: Asthma, GERD/Reflux, Hypertension, Musculoskeletal Disorder Additional Past Medical History / Comment(s): HX HTN-(NO CURRENT MEDS)., HERNIATED DISCS WITH BACK PAIN, CHRONIC CONSTIPATION (HX OF ENEMA USE AND HOSPITALIZATION)., STATES HX OF PHARYNGITIS AND ENLARGED TONSILS TX RECENTLY. History of Any Multi-Drug Resistant Organisms: None Reported Past Surgical History: No Surgical Hx Reported Additional Past Surgical History / Comment(s): wisdom teeth Past Anesthesia/Blood Transfusion Reactions: Previous Problems w/ Anesthesia Additional Past Anesthesia/Blood Transfusion Reaction / Comment(s): difficulty coming out of anesthesia with emotional response and crying when wisdom teeth removed. Past Psychological History: ADD/ADHD, Anxiety, Bipolar, Depression Smoking Status: Current every day smoker Past Alcohol Use History: None Reported Additional Past Alcohol Use History / Comment(s): Smoker since 2008, 1 - 1 1/2ppd Past Drug Use History: Marijuana, Opiates Additional Drug Use History / Comment(s): no current use. - Past Family History Family Additional Family Medical History / Comment(s): Hypertension runs in the family Medications and Allergies Home Medications Medication Instructions Recorded Confirmed Type L.acidoph,Paracasei, B.lactis 1 cap PO DAILY 05/26/18 09/01/19 History [Probiotic] Baclofen [Lioresal] 20 mg PO BID 11/19/18 09/01/19 History Cyclobenzaprine [Flexeril] 10 mg PO TID #20 tab 11/19/18 09/01/19 Rx HYDROcodone/APAP 7.5-325MG [[place] 1 tab PO TID PRN 11/19/18 09/01/19 History 7.5-325] Naproxen 500 mg PO DIRECTED PRN 11/19/18 09/01/19 History PARoxetine [Paxil] 20 mg PO DAILY 11/19/18 09/01/19 History Albuterol Sulfate [Proair Hfa] 1 - 2 puff INHALATION Q6HR PRN 08/31/19 09/01/19 History Omeprazole 20 mg PO DIRECTED PRN 08/31/19 09/01/19 History traMADol HCL [Ultram] 50 mg PO DAILY 08/31/19 09/01/19 History Allergies Allergy/AdvReac Type Severity Reaction Status Date / Time Penicillins Allergy Rash/Hives Verified 09/01/19 11:08 Surgical - Exam Vital Signs Temp Pulse Resp BP Pulse Ox 97.7 F 83 18 141/83 97 09/01/19 11:12 09/01/19 11:12 09/01/19 11:12 09/01/19 11:12 09/01/19 11:12 - General well developed, well nourished, no distress - Eyes PERRL - ENT normal pinna - Neck no masses - Respiratory normal expansion - Cardiovascular Rhythm: regular - Abdomen Abdomen: soft, non tender Results - Labs Abnormal Lab Results - Last 24 Hours (Table) 09/01/19 Range/Units 11:18 POC Glucose (mg/dL) 100 H (75-99) mg/dL Assessment and Plan Assessment: History constipation, dull pain. We'll perform colonoscopy.
[2019-09-01] MEDS ORDERED: PROPOFOL 10 MG/ML 20 ML VIAL IV ONE (12:07)
--- NOTE | 2019-09-01 12:17 | P.OP ---
Date of Procedure: 09/01/19 Preoperative Diagnosis: Constipation Postoperative Diagnosis: Normal colonoscopy Procedure(s) Performed: Colonoscopy Anesthesia: MAC Surgeon: Davis Bianchi Pathology: none sent Condition: stable Disposition: PACU Description of Procedure: PROCEDURE: The patient was placed on the endoscopy table in the lateral position. Digital rectal examination was performed which revealed no abnormalities. The prostate was symmetrical without nodules. Flexible colonoscope was then placed in the patient's anus and passed throughout the entire colon. The ileocecal valve was visualized. The cecum, ascending, transverse, descending and sigmoid colon were normal. The rectum was normal as well. There were no masses, polyps or diverticula noted in the entire colon.
[2019-09-01 13:00] VITALS: BP 119/78; PULSE 65
== END 2019-09-01 13:12 | disposition home or self-care (01) ==
LOC: ORWHC2ENDO 10:48
PROVIDERS: ATTEND Surgery
DX: K59.09 Other constipation (principal); K58.9 Irritable bowel syndrome, unspecified; J45.909 Unspecified asthma, uncomplicated; K21.9 Gastro-esophageal reflux disease without esophagitis; I10 Essential (primary) hypertension; M51.9 Unspecified thoracic, thoracolumbar and lumbosacral intervertebral disc disorder; F90.9 Attention-deficit hyperactivity disorder, unspecified type; F41.9 Anxiety disorder, unspecified; F31.9 Bipolar disorder, unspecified; F17.210 Nicotine dependence, cigarettes, uncomplicated; Z87.09 Personal history of other diseases of the respiratory system; Z98.890 Other specified postprocedural states; Z91.89 Other specified personal risk factors, not elsewhere classified; Z79.899 Other long term (current) drug therapy; Z79.891 Long term (current) use of opiate analgesic; Z79.1 Long term (current) use of non-steroidal anti-inflammatories (NSAID); Z88.0 Allergy status to penicillin; Z82.49 Family history of ischemic heart disease and other diseases of the circulatory system
CPT/HCPCS: 45378; J2704

== ENCOUNTER 2020-04-20 03:25 | Emergency (ER) | payer OTHER ==
[2020-04-20 03:36] VITALS: TEMP 97.9
[2020-04-20] MEDS ORDERED: ORPHENADRINE 30 MG/ML 2 ML VIAL IM STA (04:10)
[2020-04-20] MEDS ORDERED: KETOROLAC 15 MG/ML 1 ML VIAL IVP STA (04:10)
[2020-04-20] MEDS ORDERED: methylPREDNISolone SOD SUCCI 125 MG/2 ML VIAL IM ONE (04:10)
[2020-04-20] MEDS ORDERED: KETOROLAC 15 MG/ML 1 ML VIAL IM STA (04:13)
--- NOTE | 2020-04-20 04:31 | ED ---
Back Pain HPI - General Chief Complaint: Back Pain/Injury Stated Complaint: Back Pain Time Seen by Provider: 04/20/20 03:26 Source: patient - History of Present Illness Initial Comments: This patient is 30-year-old man with history of previous sciatic nerve pain who presents with a flareup of the same. The patient states that he had been moving some bending and lifting a few days ago and then had onset of pain. He was seen by his physician and had Toradol shot. Patient also was seen by chiropractor. Patient states he did have some mild improvement but still is having severe pain. The pain radiates to his right leg. He is not having any weakness. No change in bladder or bowel function. No saddle anesthesia. Patient states with his previous flareup she had epidural shot that seemed to help and he is going to follow with his specialist and see about having this MD Complaint: back pain, back injury Onset/Timin -: days(s) Similar Symptoms Previously: Yes Place: home Radiation: right leg Severity: severe Quality: burning Consistency: constant Worsens With: movement, sitting upright Context: turning/twisting Associated Symptoms: denies other symptoms Treatments Prior to Arrival: NSAIDS, other - Related Data Home Medications Medication Instructions Recorded Confirmed L.acidoph,Paracasei, B.lactis 1 cap PO DAILY 05/26/18 09/01/19 [Probiotic] Baclofen [Lioresal] 20 mg PO BID 11/19/18 09/01/19 HYDROcodone/APAP 7.5-325MG [[place] 1 tab PO TID PRN 11/19/18 09/01/19 7.5-325] Naproxen 500 mg PO DIRECTED PRN 11/19/18 09/01/19 PARoxetine [Paxil] 20 mg PO DAILY 11/19/18 09/01/19 Albuterol Sulfate [Proair Hfa] 1 - 2 puff INHALATION Q6HR PRN 08/31/19 09/01/19 Omeprazole 20 mg PO DIRECTED PRN 08/31/19 09/01/19 traMADol HCL [Ultram] 50 mg PO DAILY 08/31/19 09/01/19 Previous Rx's Medication Instructions Recorded Cyclobenzaprine [Flexeril] 10 mg PO TID #20 tab 11/19/18 Allergies Allergy/AdvReac Type Severity Reaction Status Date / Time Penicillins Allergy Rash/Hives Verified 04/20/20 03:37 Review of Systems ROS Statement: Those systems with pertinent positive or pertinent negative responses have been documented in the HPI. ROS Other: All systems not noted in ROS Statement are negative. Constitutional: Denies: fever, chills, weakness Respiratory: Denies: cough, dyspnea Cardiovascular: Denies: chest pain, edema Gastrointestinal: Denies: abdominal pain Musculoskeletal: Reports: as per HPI, back pain Neurological: Denies: headache, weakness, numbness, paresthesias Past Medical History Past Medical History: Asthma, GERD/Reflux, Hypertension, Musculoskeletal Disorder Additional Past Medical History / Comment(s): HX HTN-(NO CURRENT MEDS)., HERNIATED DISCS WITH BACK PAIN, CHRONIC CONSTIPATION (HX OF ENEMA USE AND HOSPITALIZATION)., STATES HX OF PHARYNGITIS AND ENLARGED TONSILS TX RECENTLY. History of Any Multi-Drug Resistant Organisms: None Reported Past Surgical History: No Surgical Hx Reported Additional Past Surgical History / Comment(s): wisdom teeth Past Anesthesia/Blood Transfusion Reactions: Previous Problems w/ Anesthesia Additional Past Anesthesia/Blood Transfusion Reaction / Comment(s): difficulty coming out of anesthesia with emotional response and crying when wisdom teeth removed. Past Psychological History: ADD/ADHD, Anxiety, Bipolar, Depression Smoking Status: Current every day smoker Past Alcohol Use History: None Reported Past Drug Use History: None Reported - Past Family History Family Additional Family Medical History / Comment(s): Hypertension runs in the family General Exam General appearance: alert, in no apparent distress Neck exam: Present: normal inspection, full ROM. Absent: tenderness Respiratory exam: Present: normal lung sounds bilaterally. Absent: respiratory distress, wheezes, rales, rhonchi, stridor Cardiovascular Exam: Present: regular rate, normal rhythm, normal heart sounds. Absent: systolic murmur, diastolic murmur, rubs, gallop GI/Abdominal exam: Present: soft. Absent: distended, tenderness, guarding, rebound, mass, pulsatile mass, hernia Extremities exam: Present: normal inspection, normal capillary refill. Absent: pedal edema, calf tenderness Back exam: Present: normal inspection, paraspinal tenderness. Absent: CVA tenderness (R), CVA tenderness (L), vertebral tenderness, rash noted Neurological exam: Present: alert, reflexes normal. Absent: motor sensory def icit Skin exam: Present: warm, dry, intact, normal color. Absent: rash Course Vital Signs 04/20/20 03:34 Temperature 97.9 F Pulse Rate 91 Respiratory 16 Rate Blood Pressure 167/103 O2 Sat by Pulse 98 Oximetry Disposition Clinical Impression: Sciatica of right side Disposition: HOME SELF-CARE Condition: Good Instructions (If sedation given, give patient instructions): Acute Low Back Pain (ED) Is patient prescribed a controlled substance at d/c from ED?: No Referrals: Diane Jesus DO [Primary Care Provider] - 1-2 days Manoj Still DO [Doctor of Osteopathic Medicine] - 1-2 days
[2020-04-20] MEDS ORDERED: ACET/COD 300 MG/30 MG STARTER PACK 6 TAB BTL PO STA (04:56)
[2020-04-20 05:11] VITALS: BP 158/82; PULSE 78; RESP 18
== END 2020-04-20 05:11 | disposition home or self-care (01) ==
LOC: EC 03:25
DX: M54.31 Sciatica, right side (principal); J45.909 Unspecified asthma, uncomplicated; F32.9 Major depressive disorder, single episode, unspecified; F41.9 Anxiety disorder, unspecified; F17.200 Nicotine dependence, unspecified, uncomplicated; Z79.899 Other long term (current) drug therapy; Z79.891 Long term (current) use of opiate analgesic; Z88.0 Allergy status to penicillin
CPT/HCPCS: 99283; 96372 ×3; J2360; J2930; J1885

== ENCOUNTER 2020-05-28 23:06 | Emergency (ER) | payer OTHER ==
[2020-05-28 23:18] VITALS: BP 135/94; PULSE 98; RESP 16; TEMP 97.7
--- NOTE | 2020-05-28 23:35 | ED ---
Abdominal Pain HPI - General Chief Complaint: Abdominal Pain Stated Complaint: Constipation Time Seen by Provider: 05/28/20 23:20 Source: patient Mode of arrival: ambulatory Limitations: no limitations - History of Present Illness Initial Comments: 30-year-old male with history of constipation presented emergency Department with a chief complaint of constipation. Patient reports ongoing bouts with constipation since he was a child. Patient reports taking lactulose and MiraLAX daily basis. Reports not having a single bowel movement in 7 days. States he is otherwise eating and drinking without difficulty. Denies nausea vomiting diarrhea. Does feel abdominal bloating and generalized abdominal pain. Denies any fevers or chills. Denies any neck pain chest pain or shortness of breath. Patient is requesting an enema and GoLYTELY which has previously worked for him. Denies hematuria, hematochezia or melena. Reports the pain is dull /10. Denies alleviating or aggravating factors. - Related Data Home Medications Medication Instructions Recorded Confirmed L.acidoph,Paracasei, B.lactis 1 cap PO DAILY 05/26/18 09/01/19 [Probiotic] Baclofen [Lioresal] 20 mg PO BID 11/19/18 09/01/19 HYDROcodone/APAP 7.5-325MG [[place] 1 tab PO TID PRN 11/19/18 09/01/19 7.5-325] Naproxen 500 mg PO DIRECTED PRN 11/19/18 09/01/19 PARoxetine [Paxil] 20 mg PO DAILY 11/19/18 09/01/19 Albuterol Sulfate [Proair Hfa] 1 - 2 puff INHALATION Q6HR PRN 08/31/19 09/01/19 Omeprazole 20 mg PO DIRECTED PRN 08/31/19 09/01/19 traMADol HCL [Ultram] 50 mg PO DAILY 08/31/19 09/01/19 Previous Rx's Medication Instructions Recorded Cyclobenzaprine [Flexeril] 10 mg PO TID #20 tab 11/19/18 Peg 3350-Na Sulf,Bicarb,Cl/KCl 4,000 ml PO DIRECTED #1 bottle 05/28/20 [Golytely Lavage] Allergies Allergy/AdvReac Type Severity Reaction Status Date / Time Penicillins Allergy Rash/Hives Verified 05/28/20 23:20 Review of Systems ROS Statement: Those systems with pertinent positive or pertinent negative responses have been documented in the HPI. ROS Other: All systems not noted in ROS Statement are negative. Past Medical History Past Medical History: Asthma, GERD/Reflux, Hypertension, Musculoskeletal Disorder Additional Past Medical History / Comment(s): HX HTN-(NO CURRENT MEDS)., HERNIATED DISCS WITH BACK PAIN, CHRONIC CONSTIPATION (HX OF ENEMA USE AND HOSPITALIZATION)., STATES HX OF PHARYNGITIS AND ENLARGED TONSILS TX RECENTLY. History of Any Multi-Drug Resistant Organisms: None Reported Past Surgical History: No Surgical Hx Reported Additional Past Surgical History / Comment(s): wisdom teeth Past Anesthesia/Blood Transfusion Reactions: Previous Problems w/ Anesthesia Additional Past Anesthesia/Blood Transfusion Reaction / Comment(s): difficulty coming out of anesthesia with emotional response and crying when wisdom teeth removed. Past Psychological History: ADD/ADHD, Anxiety, Bipolar, Depression Smoking Status: Current every day smoker Past Alcohol Use History: None Reported Past Drug Use History: None Reported - Past Family History Family Additional Family Medical History / Comment(s): Hypertension runs in the family General Exam Limitations: no limitations Course Vital Signs 05/28/20 23:13 Temperature 97.7 F Pulse Rate 98 Respiratory 16 Rate Blood Pressure 135/94 O2 Sat by Pulse 95 Oximetry Medical Decision Making - Medical Decision Making 30-year-old male presents to the emergency department with chief complaint of constipation. On physical examination, diffuse abdominal tenderness. No CVA tenderness. Rest of exam is unremarkable. Patient was given milk of molasses enema. And will be discharged with GoLYTELY. Return parameters discussed the patient was understanding and agreeable. Case discussed with Disposition Clinical Impression: Constipation Disposition: HOME SELF-CARE Condition: Stable Instructions (If sedation given, give patient instructions): Constipation (DC), High Fiber Diet (ED) Additional Instructions: Please return to the Emergency Department if symptoms worsen or any other concerns. Follow up with a GI doctor Prescriptions: Peg 3350-Na Sulf,Bicarb,Cl/KCl [Golytely Lavage] 4,000 ml PO DIRECTED #1 bottle Is patient prescribed a controlled substance at d/c from ED?: No Referrals: Diane Jesus DO [Primary Care Provider] - 1-2 days Sona Montez MD [STAFF PHYSICIAN] - 1-2 days Time of Disposition: 00:18
--- NOTE | 2020-05-28 23:57 | XR ---
EXAMINATION TYPE: XR KUB DATE OF EXAM: 05/28/2020 COMPARISON: 02/24/2013 HISTORY: Constipation. No bowel movement for 7 days. TECHNIQUE: 2 views FINDINGS: 2 views upright show no sign of intestinal obstruction or pneumoperitoneum. Fecal pattern i s fairly normal. There is no evidence of a mass. Lung bases are clear. There are no pathologic calcif ications over the kidneys. IMPRESSION: Nonacute abdomen. I do not see evidence for significant constipation.
== END 2020-05-29 01:01 | disposition home or self-care (01) ==
LOC: EC 23:06
DX: K59.00 Constipation, unspecified (principal); J45.909 Unspecified asthma, uncomplicated; K21.9 Gastro-esophageal reflux disease without esophagitis; I10 Essential (primary) hypertension; M54.9 Dorsalgia, unspecified; F31.9 Bipolar disorder, unspecified; F41.9 Anxiety disorder, unspecified; F90.9 Attention-deficit hyperactivity disorder, unspecified type; F17.200 Nicotine dependence, unspecified, uncomplicated; Z79.1 Long term (current) use of non-steroidal anti-inflammatories (NSAID); Z79.891 Long term (current) use of opiate analgesic; Z79.899 Other long term (current) drug therapy; Z88.0 Allergy status to penicillin; Z82.49 Family history of ischemic heart disease and other diseases of the circulatory system
CPT/HCPCS: 74018; 99284

== ENCOUNTER 2021-03-29 08:37 | Emergency (ER) | payer OTHER ==
[2021-03-29 08:44] VITALS: BP 144/88; PULSE 86; RESP 18; TEMP 97.1
--- NOTE | 2021-03-29 10:16 | ED ---
ENT HPI - General Chief complaint: Dental/Oral Stated complaint: Body Aches,NoTaste or Smell Time Seen by Provider: 03/29/21 10:01 Source: patient, RN notes reviewed Mode of arrival: ambulatory Limitations: no limitations - History of Present Illness Initial comments: Patient is a 31-year-old male that presents to the emergency department complaining of right upper mouth pain. He notes he thinks he might have like a sinus infection. He notes he would like a Covid test while he is here. Patient was otherwise well-appearing in no apparent distress. He notes he has not followed up with a dentist in over a year. Patient denied any chest pain shortness of breath headache nausea vomiting diarrhea constipation fever fatigue chills. - Related Data Home Medications Medication Instructions Recorded Confirmed L.acidoph,Paracasei, B.lactis 1 cap PO DAILY 05/26/18 09/01/19 [Probiotic] Baclofen [Lioresal] 20 mg PO BID 11/19/18 09/01/19 HYDROcodone/APAP 7.5-325MG [[place] 1 tab PO TID PRN 11/19/18 09/01/19 7.5-325] Naproxen 500 mg PO DIRECTED PRN 11/19/18 09/01/19 PARoxetine [Paxil] 20 mg PO DAILY 11/19/18 09/01/19 Albuterol Sulfate [Proair Hfa] 1 - 2 puff INHALATION Q6HR PRN 08/31/19 09/01/19 Omeprazole 20 mg PO DIRECTED PRN 08/31/19 09/01/19 traMADol HCL [Ultram] 50 mg PO DAILY 08/31/19 09/01/19 Previous Rx's Medication Instructions Recorded Cyclobenzaprine [Flexeril] 10 mg PO TID #20 tab 11/19/18 Peg 3350-Na Sulf,Bicarb,Cl/KCl 4,000 ml PO DIRECTED #1 bottle 05/28/20 [Golytely Lavage] Clindamycin HCl 300 mg PO Q6HR #40 cap 03/29/21 Allergies Allergy/AdvReac Type Severity Reaction Status Date / Time Penicillins Allergy Rash/Hives Verified 03/29/21 08:44 Review of Systems ROS Statement: Those systems with pertinent positive or pertinent negative responses have been documented in the HPI. ROS Other: All systems not noted in ROS Statement are negative. Past Medical History Past Medical History: Asthma, GERD/Reflux, Hypertension, Musculoskeletal Disorder, Thyroid Disorder Additional Past Medical History / Comment(s): HX HTN-(NO CURRENT MEDS)., HERNIATED DISCS WITH BACK PAIN, CHRONIC CONSTIPATION (HX OF ENEMA USE AND HOSPITALIZATION)., STATES HX OF PHARYNGITIS AND ENLARGED TONSILS TX RECENTLY. History of Any Multi-Drug Resistant Organisms: None Reported Past Surgical History: No Surgical Hx Reported Additional Past Surgical History / Comment(s): wisdom teeth Past Anesthesia/Blood Transfusion Reactions: Previous Problems w/ Anesthesia Additional Past Anesthesia/Blood Transfusion Reaction / Comment(s): difficulty coming out of anesthesia with emotional response and crying when wisdom teeth removed. Past Psychological History: ADD/ADHD, Anxiety, Bipolar, Depression Smoking Status: Current every day smoker Past Alcohol Use History: None Reported Past Drug Use History: None Reported - Past Family History Family Additional Family Medical History / Comment(s): Hypertension runs in the family General Exam Limitations: no limitations General appearance: alert, in no apparent distress Head exam: Present: atraumatic, normocephalic, normal inspection Eye exam: Present: normal appearance, PERRL, EOMI. Absent: scleral icterus, conjunctival injection, periorbital swelling ENT exam: Present: normal exam, mucous membranes moist, other (Mildly erythematous right upper mouth. No swelling.) Neck exam: Present: normal inspection Respiratory exam: Present: normal lung sounds bilaterally. Absent: respiratory distress, wheezes, rales, rhonchi, stridor Cardiovascular Exam: Present: regular rate, normal rhythm, normal heart sounds. Absent: systolic murmur, diastolic murmur, rubs, gallop, clicks Extremities exam: Present: normal inspection, full ROM, normal capillary refill. Absent: tenderness, pedal edema, joint swelling, calf tenderness Neurological exam: Present: alert, oriented X3 Psychiatric exam: Present: normal affect, normal mood Skin exam: Present: warm, dry, intact, normal color. Absent: rash Course Vital Signs 03/29/21 08:40 Temperature 97.1 F L Pulse Rate 86 Respiratory 18 Rate Blood Pressure 144/88 O2 Sat by Pulse 100 Oximetry Medical Decision Making - Medical Decision Making 31-year-old male complaining of right upper mouth pain possible sinus infection. Covid test ordered and is negative. Patient was informed results and is agreeable with discharge home with follow-up to dentist. Antibiotics sent to pharmacy. Case discussed with Dr. Louis. - Lab Data Lab Results 03/29/21 Range/Units 08:49 Coronavirus (PCR) Not Detected (Not Detectd) Disposition Clinical Impression: Dental infection Disposition: HOME SELF-CARE Condition: Stable Instructions (If sedation given, give patient instructions): Toothache (ED) Additional Instructions: Please return to the Emergency Department if symptoms worsen or any other concerns. Follow-up primary care in 1-2 days. Take antibiotics as prescribed. Follow-up with dentist as soon as possible. Prescriptions: Clindamycin HCl 300 mg PO Q6HR #40 cap Is patient prescribed a controlled substance at d/c from ED?: No Referrals: Diane Jesus DO [Primary Care Provider] - 1-2 days Time of Disposition: 10:16
== END 2021-03-29 10:30 | disposition home or self-care (01) ==
LOC: EC 08:37
DX: K04.7 Periapical abscess without sinus (principal); K21.9 Gastro-esophageal reflux disease without esophagitis; I10 Essential (primary) hypertension; J45.909 Unspecified asthma, uncomplicated; F90.9 Attention-deficit hyperactivity disorder, unspecified type; F31.9 Bipolar disorder, unspecified; F17.200 Nicotine dependence, unspecified, uncomplicated
CPT/HCPCS: 87635; 99283

== ENCOUNTER 2022-01-23 20:32 | Emergency (ER) | payer OTHER ==
[2022-01-23] MEDS ORDERED: DIPH,PERTUS(ACELL)TETVAC-LF 0.5 ML VIAL IM ONE (20:42)
[2022-01-23] MEDS ORDERED: SODIUM CHLORIDE 0.9% 1,000 ML IV STA (20:42)
[2022-01-23] MEDS ORDERED: fentaNYL (PF) 50 MCG/ML 2 ML AMP IVP STA (20:44)
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
[2022-01-23 21:09] LABS: Basophils # (A) 0.1 k/uL (0-0.2); Basophils % (A) 1 %; Eosinophils # (A) 0.1 k/uL (0-0.7); Eosinophils % (A) 2 %; HCT 41.2 % (39.0-53.0); HGB 14.6 gm/dL (13.0-17.5); Lymphocytes # (A) 1.8 k/uL (1.0-4.8); Lymphocytes % (A) 30 %; MCH 34.1 pg (25.0-35.0); MCHC 35.5 g/dL (31.0-37.0); MCV 96.2 fL (80.0-100.0); Mean Platelet Volume 7.9; Monocytes # (A) 0.3 k/uL (0-1.0); Monocytes % (A) 5 %; Neutrophils # (A) 3.6 k/uL (1.3-7.7); Neutrophils % (A) 61 %; Platelet Count 253 k/uL (150-450); RBC 4.28 m/uL (4.30-5.90); RDW 11.8 % (11.5-15.5)
[2022-01-23 21:12] VITALS: BP 132/71; PULSE 93; RESP 20; TEMP 98
[2022-01-23 21:25] LABS: INR 0.9 (<1.2)
[2022-01-23 21:27] LABS: ALT 29 U/L (4-49); AST 40 U/L (17-59); African American GFR (CKD) >90 (>60 ml/min/1.73 sqM); Albumin 4.6 g/dL (3.5-5.0); Alkaline Phosphatase 81 U/L (38-126); Anion Gap 11 mmol/L; Blood Urea Nitrogen 18 mg/dL (9-20); Calcium 8.8 mg/dL (8.4-10.2); Carbon Dioxide 22 mmol/L (22-30); Chloride 105 mmol/L (98-107); Glucose 92 mg/dL (74-99); Non-African American GFR(CKD) >90 (>60 ml/min/1.73 sqM); Sodium 138 mmol/L (137-145); Total Bilirubin 0.3 mg/dL (0.2-1.3); Total Protein 6.7 g/dL (6.3-8.2)
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
[2022-01-23 21:39] LABS: Alcohol 130 mg/dL
[2022-01-23 21:40] LABS: Partial Thromboplastin Time 21.5 sec (22.0-30.0)
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
--- NOTE | 2022-01-23 21:57 | XR ---
EXAMINATION TYPE: XR clavicle LT DATE OF EXAM: 01/23/2022 COMPARISON: NONE HISTORY: Clavicle pain TECHNIQUE: 2 views FINDINGS: There is no fracture nor dislocation. AC joint is intact IMPRESSION: Negative left clavicle exam. No fracture.
--- NOTE | 2022-01-23 21:58 | XR ---
EXAMINATION TYPE: XR shoulder complete LT DATE OF EXAM: 01/23/2022 COMPARISON: NONE HISTORY: Pain. TECHNIQUE: 3 views FINDINGS: I see no fracture nor dislocation. Joint spaces are normal. AC joint is intact. IMPRESSION: Negative left shoulder exam
[2022-01-23] MEDS ORDERED: TOPICAL SKIN ADHESIVE 1 EACH AMP TOPICAL ONE (22:10)
[2022-01-23] MEDS ORDERED: LIDOCAINE 1% INJ 10MG/ML (30 ML VIAL-PF) SQ ONE (22:10)
[2022-01-23] MEDS ORDERED: KETOROLAC 15 MG/ML 1 ML VIAL IVP STA (22:48)
[2022-01-23 23:22] LABS: Appearance,Urine Clear (Clear); Bilirubin,Urine Negative (Negative); Blood,Urine Small (Negative); Color,Urine Colorless; Glucose,Urine (UA) Negative (Negative); Ketones,Urine Negative (Negative); Leukocyte Esterase,Urine Negative (Negative); Mucus,Urine Rare /hpf; Nitrite,Urine Negative (Negative); PH, Urine 5.5 (5.0-8.0); Protein,Urine Negative (Negative); Urobilinogen,Urine <2.0 mg/dL (<2.0)
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
[2022-01-23 23:46] LABS: Amphetamine Screen,Urine Not Detected (NotDetected); Barbiturate Screen,Urine Not Detected (NotDetected); Benzodiazepines Screen,Urine Not Detected (NotDetected); Cocaine Screen,Urine Not Detected (NotDetected); Methadone Screen, Urine Not Detected (NotDetected); Opiate Screen,Urine Not Detected (NotDetected); Oxycodone Screen, Urine Not Detected (NotDetected); Phencyclidine Screen,Urine Not Detected (NotDetected); Tricyclic Antidepressant,Urine Not Detected (NotDetected); Urn Cannabinoid Scrn Detected (NotDetected)
== END 2022-01-23 23:30 | disposition home or self-care (01) ==
LOC: EC 20:32
DX: S41.012A Laceration without foreign body of left shoulder, initial encounter (principal); S01.312A Laceration without foreign body of left ear, initial encounter; S01.412A Laceration without foreign body of left cheek and temporomandibular area, initial encounter; S80.811A Abrasion, right lower leg, initial encounter; S80.812A Abrasion, left lower leg, initial encounter; F10.129 Alcohol abuse with intoxication, unspecified; F17.200 Nicotine dependence, unspecified, uncomplicated; F90.9 Attention-deficit hyperactivity disorder, unspecified type; J45.909 Unspecified asthma, uncomplicated; K21.9 Gastro-esophageal reflux disease without esophagitis; I10 Essential (primary) hypertension; Z88.0 Allergy status to penicillin; Z79.899 Other long term (current) drug therapy; V47.5XXA Car driver injured in collision with fixed or stationary object in traffic accident, initial encounter; Y92.410 Unspecified street and highway as the place of occurrence of the external cause; Y90.6 Blood alcohol level of 120-199 mg/100 ml
CPT/HCPCS: 36415; 86900; 86901; 80053; 84484; 85025; 85610; 85730; 86850; 81001; 80306; 72170; 73030; 73000; 71045; 72129; 72125; 72132; 70486; 70450; 71260; 74177; 90715; 99285; 12001; 12011; 96365; 96375; 96361; 90471; G0480; J0690; J2001; J3010; J1885; Q9967; 80320

== ENCOUNTER 2024-08-07 11:29 | Inpatient (IN) | payer OTHER ==
--- NOTE | 2024-08-07 12:24 | ED ---
ENT HPI - General Chief complaint: Allergic Reaction Stated complaint: Allergic Rxn Time Seen by Provider: 08/07/24 11:38 Source: patient, RN notes reviewed Mode of arrival: ambulatory Limitations: no limitations - History of Present Illness Initial comments: This is a 34-year-old male who presents to the emergency department for facial lesions and upper lip swelling. States that it started 5 days ago. He initially went to [facility] and was diagnosed with angioedema suspected be related to his lisinopril. He has since stopped the lisinopril and was started on prednisone, Benadryl, and doxycycline. States that he has been taking all of these as prescribed but continues to get worse. The swelling is all localized to the upper lip, but is becoming much more prominent and painful. He has also started to notice scab-like lesions on his face. States that he occasionally picks his skin and then they turn into these large lesions. Denies any difficulty breathing or swelling to his tongue. Denies any chest pain or shortness of breath. - Related Data Home Medications Medication Instructions Recorded Confirmed Albuterol Sulfate [Ventolin HFA] 2 puff INHALATION RT-Q6H PRN 08/07/24 08/07/24 Buprenorphine/Naloxone 8Mg/2Mg 1 film SL BID 08/07/24 08/07/24 [Suboxone 8-2Mg Film] Cetirizine HCl [Zyrtec] 10 mg PO DAILY 08/07/24 08/07/24 Cyclobenzaprine [Flexeril] 10 mg PO BID 08/07/24 08/07/24 Doxycycline Hyclate 100 mg PO BID 08/07/24 08/07/24 Gabapentin 600 mg PO TID 08/07/24 08/07/24 Naloxone HCl [Narcan] 4 mg NASAL DIRECTED PRN 08/07/24 08/07/24 PARoxetine HCL [Paxil] 40 mg PO DAILY 08/07/24 08/07/24 QUEtiapine [SEROquel] 50 mg PO HS 08/07/24 08/07/24 busPIRone HCL 10 mg PO TID 08/07/24 08/07/24 carvediloL [Coreg] 6.25 mg PO BID 08/07/24 08/07/24 hydrOXYzine HCL [Atarax] 25 mg PO HS 08/07/24 08/07/24 polyethylene glycoL 3350 [Miralax] 17 gm PO BID 08/07/24 08/07/24 predniSONE [Deltasone] 20 mg PO BID 08/07/24 08/07/24 valACYclovir HCL [Valtrex] 1,000 mg PO BID 08/07/24 08/07/24 Allergies Allergy/AdvReac Type Severity Reaction Status Date / Time Penicillins Allergy Rash/Hives Verified 08/07/24 15:00 Review of Systems ROS Statement: Those systems with pertinent positive or pertinent negative responses have been documented in the HPI. ROS Other: All systems not noted in ROS Statement are negative. Past Medical History Past Medical History: Asthma, GERD/Reflux, Hypertension, Musculoskeletal Disorder, Thyroid Disorder Additional Past Medical History / Comment(s): HX HTN-(NO CURRENT MEDS)., HERNIATED DISCS WITH BACK PAIN, CHRONIC CONSTIPATION (HX OF ENEMA USE AND HOSPITALIZATION)., STATES HX OF PHARYNGITIS AND ENLARGED TONSILS TX RECENTLY. History of Any Multi-Drug Resistant Organisms: None Reported Past Surgical History: No Surgical Hx Reported Additional Past Surgical History / Comment(s): wisdom teeth Past Anesthesia/Blood Transfusion Reactions: Previous Problems w/ Anesthesia Additional Past Anesthesia/Blood Transfusion Reaction / Comment(s): difficulty coming out of anesthesia with emotional response and crying when wisdom teeth removed. Past Psychological History: ADD/ADHD, Anxiety, Bipolar, Depression Smoking Status: Current every day smoker Past Alcohol Use History: None Reported Past Drug Use History: None Reported - Past Family History Family Additional Family Medical History / Comment(s): Hypertension runs in the family General Exam Limitations: no limitations General appearance: alert, in no apparent distress Head exam: Present: atraumatic ENT exam: Present: other (Swelling to the upper lip. No swelling to the tongue.) Neck exam: Present: normal inspection. Absent: tenderness, meningismus, lymphadenopathy Respiratory exam: Present: normal lung sounds bilaterally. Absent: respiratory distress, wheezes, rales, rhonchi, stridor Cardiovascular Exam: Present: regular rate, normal rhythm Neurological exam: Present: alert, oriented X3, CN II-XII intact Psychiatric exam: Present: normal affect, normal mood Skin exam: Present: other (Scattered crusted lesions on the face) Course Vital Signs 08/07/24 11:31 Temperature 97.4 F L Pulse Rate 90 Respiratory 18 Rate Blood Pressure 138/92 O2 Sat by Pulse 99 Oximetry Medical Decision Making - Medical Decision Making This is a 34-year-old male who presents to the emergency department for upper lip swelling. Was pt. sent in by a medical professional or institution? @ -No Did you speak to anyone other than the patient for history? @ -No Did you review nursing and triage notes? @ -Yes, and I agree, it is accurate with regards to the patient's symptoms. Were old charts reviewed? @ -No Differential Diagnosis? @ -Angioedema, cellulitis, abscess, this is not meant to be an all-inclusive li st. EKG interpreted by me (3pts min.)? @ -Not obtained X-rays interpreted by me (1pt min.)? @ -Not obtained CT interpreted by me (1pt min.)? @ -Not obtained U/S interpreted by me (1pt. min.)? @ -Not obtained What testing was considered but not performed? (CT, X-rays, U/S, labs)? Why? @ -None What meds were considered but not given? Why? @ -None Did you discuss the management of the patient with other professionals? @ -Yes, Dr. Arechiga, who accepts the patient for admission. Did you reconcile home meds? @ -Yes Was smoking cessation discussed for >3mins.? @ -I discussed smoking cessation for greater than 3 minutes. The risk of smoking were discussed with the patient including but not limited to risks of cancer, stroke, coronary artery disease and COPD. Also discussed with patient were multiple methods of quitting smoking. Lastly we discussed the financial cost of smoking. Was critical care preformed (if so, how long)? @ -No Were there social determinants of health that impacted care today? How? (Homelessness, low income, unemployed, alcoholism, drug addiction, transportation, low edu. Level, literacy, decrease access to med. care, correction, rehab)? @ -No Was there de-escalation of care discussed even if they declined? (Discuss DNR or withdrawal of care, Hospice)? @ -No What co-morbidities impacted this encounter? (DM, HTN, Smoking, COPD, CAD, Cancer, CVA, Hep., AIDS, mental health diagnosis, sleep apnea, morbid obesity)? @ -Smoking Was patient admitted / discharged? @ -Admitted. Lab work demonstrates leukocytosis with a white blood cell count of 11.27. Lactic acid mildly elevated 2.2 and CRP mildly elevated at 2.3. Patient had a large amount of swelling to his upper lip with scattered crusted lesions all over his face. He was initially advised that this was related to angioedema and stopped his lisinopril and began taking the prednisone, doxycycline, and Benadryl. However, patient continues to get worse. He is also in a substantial amount of discomfort. These could be herpetic lesions or he may have a bacterial infection. It is unclear if he ever had angioedema to begin with or if it was related to another pathology. Given that the cause of his presentation is unclear and his symptoms seem to be worsening, he was admitted to medicine for further management of facial cellulitis with failure of outpatient management. Blood culture obtained. He was started on cefepime and vancomycin for potential bacterial component as well as Valtrex for any potential viral/herpetic component. Consult placed for infectious disease. Case discussed with ED attending Dr. Bradshaw. Undiagnosed new problem with uncertain prognosis? @ -None Drug Therapy requiring intensive monitoring for toxicity (Heparin, Nitro, Insulin, Cardizem)? @ -None Were any procedures done? @ -None Diagnosis/symptom? @ -Facial cellulitis, failure of outpatient treatment Acute, or Chronic, or Acute on Chronic? @ -Acute Uncomplicated (without systemic symptoms) or Complicated (systemic symptoms)? @ -Uncomplicated Side effects of treatment? @ -None Exacerbation, Progression, or Severe Exacerbation] @ -Not applicable Poses a threat to life or bodily function? @ -Yes, can lead to life-threatening infection. - Lab Data Result diagrams: 08/07/24 12:14 08/07/24 12:14 Lab Results 08/07/24 08/07/24 08/07/24 Range/Units 12:14 12:14 12:14 WBC 11.27 H (4.50-10.00) 10*3/uL RBC 4.09 L (4.40-5.60) 10*6/uL Hgb 13.6 (13.0-17.0) g/dL Hct 38.3 L (39.6-50.0) % MCV 93.6 (80.0-97.0) fL MCH 33.3 H (27.0-32.0) pg MCHC 35.5 (32.0-37.0) g/dL Plt Count 317 (140-440) 10*3/uL MPV 10.0 (9.5-12.2) fL Immature Gran % (Auto) 0.4 % Neutrophils % 82.1 % Lymphocytes % 10.4 % Monocytes % 6.5 % Eosinophils % 0.5 % Basophils % 0.1 % Immature Gran # 0.05 H (0.00-0.04) 10*3/uL Neutrophils # 9.25 H (1.80-7.70) 10*3/uL Lymphocytes # 1.17 (0.90-5.00) 10*3/uL Monocytes # 0.73 (0.20-1.00) 10*3/uL Eosinophils # 0.06 (0.04-0.35) 10*3/uL Basophils # 0.01 (0.00-0.10) 10*3/uL ESR 14 (0-15) mm/Hr Sodium 136 L (137-145) mmol/L Potassium 3.8 (3.5-5.1) mmol/L Chloride 98 (98-107) mmol/L Carbon Dioxide 27 (22-30) mmol/L Anion Gap 11 mmol/L BUN 18 (9-20) mg/dL Creatinine 0.93 (0.66-1.25) mg/dL Est GFR (CKD-EPI)AfAm >90 (>60 ml/min/1.73 sqM) Est GFR (CKD-EPI)NonAf >90 (>60 ml/min/1.73 sqM) Glucose 115 H (74-99) mg/dL Lactic Ac Sepsis Rflx Plasma Lactic Acid Mg 2.2 H* (0.7-2.0) mmol/L Calcium 10.0 (8.4-10.2) mg/dL Total Bilirubin 0.6 (0.2-1.3) mg/dL AST 89 H (17-59) U/L ALT 65 H (4-49) U/L Alkaline Phosphatase 65 (38-126) U/L C-Reactive Protein 2.3 H (<1.0) mg/dL Total Protein 7.4 (6.3-8.2) g/dL Albumin 4.7 (3.5-5.0) g/dL TSH 0.178 L (0.465-4.680) mIU/L Free T4 1.02 (0.78-2.19) ng/dL 08/07/24 Range/Units 12:48 WBC (4.50-10.00) 10*3/uL RBC (4.40-5.60) 10*6/uL Hgb (13.0-17.0) g/dL Hct (39.6-50.0) % MCV (80.0-97.0) fL MCH (27.0-32.0) pg MCHC (32.0-37.0) g/dL Plt Count (140-440) 10*3/uL MPV (9.5-12.2) fL Immature Gran % (Auto) % Neutrophils % % Lymphocytes % % Monocytes % % Eosinophils % % Basophils % % Immature Gran # (0.00-0.04) 10*3/uL Neutrophils # (1.80-7.70) 10*3/uL Lymphocytes # (0.90-5.00) 10*3/uL Monocytes # (0.20-1.00) 10*3/uL Eosinophils # (0.04-0.35) 10*3/uL Basophils # (0.00-0.10) 10*3/uL ESR (0-15) mm/Hr Sodium (137-145) mmol/L Potassium (3.5-5.1) mmol/L Chloride (98-107) mmol/L Carbon Dioxide (22-30) mmol/L Anion Gap mmol/L BUN (9-20) mg/dL Creatinine (0.66-1.25) mg/dL Est GFR (CKD-EPI)AfAm (>60 ml/min/1.73 sqM) Est GFR (CKD-EPI)NonAf (>60 ml/min/1.73 sqM) Glucose (74-99) mg/dL Lactic Ac Sepsis Rflx Y Plasma Lactic Acid Mg (0.7-2.0) mmol/L Calcium (8.4-10.2) mg/dL Total Bilirubin (0.2-1.3) mg/dL AST (17-59) U/L ALT (4-49) U/L Alkaline Phosphatase (38-126) U/L C-Reactive Protein (<1.0) mg/dL Total Protein (6.3-8.2) g/dL Albumin (3.5-5.0) g/dL TSH (0.465-4.680) mIU/L Free T4 (0.78-2.19) ng/dL Disposition Clinical Impression: Facial cellulitis, Failure of outpatient treatment, Skin lesion of face, Nicotine dependence Disposition: ADMITTED IP TO THIS HOSP
[2024-08-07] MEDS: SODIUM CHLORIDE 0.9% 1,000 ML IV ONE (12:29)
[2024-08-07] MEDS: KETOROLAC 15 MG/ML 1 ML VIAL IVP STA (12:31)
[2024-08-07 12:32] LABS: Basophils # (A) 0.01 10*3/uL (0.00-0.10); Basophils % (A) 0.1 %; Eosinophils # (A) 0.06 10*3/uL (0.04-0.35); Eosinophils % (A) 0.5 %; HCT 38.3 % (39.6-50.0); HGB 13.6 g/dL (13.0-17.0); Lymphocytes # (A) 1.17 10*3/uL (0.90-5.00); Lymphocytes % (A) 10.4 %; MCH 33.3 pg (27.0-32.0); MCHC 35.5 g/dL (32.0-37.0); MCV 93.6 fL (80.0-97.0); Monocytes # (A) 0.73 10*3/uL (0.20-1.00); Monocytes % (A) 6.5 %; Neutrophils # (A) 9.25 10*3/uL (1.80-7.70); Neutrophils % (A) 82.1 %; Platelet Count 317 10*3/uL (140-440); RBC 4.09 10*6/uL (4.40-5.60); RDW 11.5 % (11.5-14.5); WBC 11.27 10*3/uL (4.50-10.00)
[2024-08-07] MEDS: HYDROmorphone 1 MG/ML 1 ML SYRINGE IVP STA (12:36)
[2024-08-07 12:48] LABS: ALT 65 U/L (4-49); AST 89 U/L (17-59); African American GFR (CKD) >90 (>60 ml/min/1.73 sqM); Albumin 4.7 g/dL (3.5-5.0); Alkaline Phosphatase 65 U/L (38-126); Anion Gap 11 mmol/L; Blood Urea Nitrogen 18 mg/dL (9-20); Carbon Dioxide 27 mmol/L (22-30); Chloride 98 mmol/L (98-107); Glucose 115 mg/dL (74-99); Non-African American GFR(CKD) >90 (>60 ml/min/1.73 sqM); Potassium 3.8 mmol/L (3.5-5.1); Sodium 136 mmol/L (137-145); Total Bilirubin 0.6 mg/dL (0.2-1.3); Total Protein 7.4 g/dL (6.3-8.2)
[2024-08-07 14:33] LABS: C Reactive Protein 2.3 mg/dL (<1.0)
[2024-08-07 14:44] LABS: T4, Free (Free Thyroxine) 1.02 ng/dL (0.78-2.19)
[2024-08-07] MEDS ORDERED: VANCOMYCIN IV PER PHARMACY 1 EACH MISC MISCELLANE PRN (14:55)
[2024-08-07] MEDS ORDERED: MORPHINE SULFATE 4 MG/ML SYRINGE IV PRN (14:56)
[2024-08-07] MEDS ORDERED: ACETAMINOPHEN TAB 325 MG TAB PO PRN (14:56)
[2024-08-07] MEDS ORDERED: IBUPROFEN 400 MG TAB PO PRN (14:56)
[2024-08-07] MEDS ORDERED: NALOXONE 0.4 MG/ML 1 ML VIAL IV PRN (14:56)
[2024-08-07] MEDS ORDERED: ONDANSETRON 4 MG/2 ML VIAL IVP PRN (14:56)
[2024-08-07 15:47] LABS: Erythrocyte Sedimentation Rate 14 mm/Hr (0-15)
[2024-08-07] MEDS: SODIUM CHLORIDE 0.9% 1,000 ML IV SCH (15:50)
[2024-08-07] MEDS: valACYclovir HCL 1,000 MG TABLET PO SCH (15:55)
[2024-08-07] MEDS: GABAPENTIN 300 MG CAP PO SCH (16:22)
[2024-08-07] MEDS: busPIRone HCl 10 MG TAB PO SCH (16:22)
[2024-08-07] MEDS: VANCOMYCIN 1,750 MG in SODIUM CHLORIDE 0.9% 500 ML 500 ML IVPB STA (16:23)
[2024-08-07] MEDS: carvediloL 6.25 MG TAB PO SCH (18:36)
[2024-08-07 20:32] LABS: HSV I IgG Interp Positive (Negative); HSV II IgG Interp Negative (Negative)
[2024-08-07] MEDS: KETOROLAC 15 MG/ML 1 ML VIAL IVP PRN (21:03)
[2024-08-07] MEDS: CYCLOBENZAPRINE 10 MG TAB PO SCH (21:04)
[2024-08-07] MEDS: polyethylene glycoL 3350 17 GM POWD.PACK PO SCH (21:05)
[2024-08-07] MEDS: hydrOXYzine HCL 25 MG TAB PO SCH (21:05)
[2024-08-07] MEDS: QUEtiapine 50 MG TAB PO SCH (21:05)
[2024-08-07] MEDS: FLUCONAZOLE IN NACL,ISO-OSM 400 MG in SALINE 1 200ML.BAG IVPB STA (21:49)
[2024-08-07] MEDS: MAG HYDROX/AL HYDROX/SIMETH 30 ML, LIDOCAINE VISCOUS 2% 30 ML, diphenhydrAMINE ELIXIR 7... PO SCH (21:49)
[2024-08-07] MEDS: NON FORMULARY DRUG (Buprenorphine/Naloxone 8mg/2mg 1 EACH Film) SUBLINGUAL SCH (22:19)
[2024-08-07] MEDS: VANCOMYCIN 1,750 MG in SODIUM CHLORIDE 0.9% 500 ML 500 ML IVPB SCH (23:53)
[2024-08-07 23:57] LABS: Appearance,Urine Clear (Clear); Bilirubin,Urine Negative (Negative); Blood,Urine Negative (Negative); Color,Urine Colorless; Glucose,Urine (UA) Negative (Negative); Ketones,Urine Negative (Negative); Leukocyte Esterase,Urine Negative (Negative); Nitrite,Urine Negative (Negative); Protein,Urine Negative (Negative); Specific Gravity,Urine 1.014 (1.001-1.035); Urobilinogen,Urine <2.0 mg/dL (<2.0)
[2024-08-08] MEDS: ACYCLOVIR SODIUM 850 MG in SODIUM CHLORIDE 0.9% 250 ML IV SCH (00:05)
[2024-08-08 00:24] LABS: Amphetamine Screen,Urine Not Detected (NotDetected); Benzodiazepines Screen,Urine Not Detected (NotDetected); Cocaine Screen,Urine Not Detected (NotDetected); Opiate Screen,Urine Not Detected (NotDetected); Phencyclidine Screen,Urine Not Detected (NotDetected); Urn Cannabinoid Scrn Not Detected (NotDetected)
[2024-08-08 00:25] LABS: Barbiturate Screen,Urine Not Detected (NotDetected); Methadone Screen, Urine Not Detected (NotDetected); Oxycodone Screen, Urine Not Detected (NotDetected); Tricyclic Antidepressant,Urine Detected (NotDetected)
--- NOTE | 2024-08-08 01:03 | HP ---
HISTORY AND PHYSICAL CHIEF COMPLAINT: Pain and swelling of the face and multiple skin lesions. HISTORY OF PRESENT ILLNESS: This is a 34-year-old gentleman with past medical history of asthma, GERD, hypertension, anxiety, and bipolar, was noted to have a pimple like lesion in the upper lip. The patient was taking doxycycline from previously. The patient developed multiple skin lesions, increase in swelling, and the patient came to [facility] and admitted for further evaluation and treatment. Referred from [facility]. The patient had a recent episode of thrush. The patient is bisexual and had some contacts unprotected according to him. There is no history of fever, rigors, or chills at this time. The labs showed some leukocytosis, possibly early evidence of sepsis as well as HSV 1 positivity too. There is no history of any fever, rigors, or chills. PAST MEDICAL HISTORY: Asthma, GERD, hypertension. Rest of the history and rest of the chart also reviewed. MEDICATIONS: Atarax. Rest of the dose and medications reviewed. ALLERGIES: Penicillin. FAMILY HISTORY: Hypertension in the family. SOCIAL HISTORY: History of smoking. REVIEW OF SYSTEMS: Fourteen-point review of systems negative except as mentioned earlier. PHYSICAL EXAMINATION: VITAL SIGNS: Pulse is 89, blood pressure 110/75, and respirations 18. HEENT: Conjunctivae normal. Facial lesions, multiple skin lesions, blotchy skin lesions present. Upper lip is swollen. There is some erythema and whitish lesion also present. Similar lesions are present in the buttocks and the genitals also. CHEST: Clear to auscultation. CARDIOVASCULAR: S1, S2. ABDOMEN: Soft. NERVOUS SYSTEM: No focal deficits. LABORATORY DATA: Reviewed. ASSESSMENT: 1. Significant skin lesions with possibly disseminated herpes or disseminated Ayah with sepsis. 2. HSV 1 positive IgG. 3. Asthma. 4. Hypertension. 5. Hypothyroidism. 6. Multiple medical issues including anxiety, bipolar, depression. RECOMMENDATIONS AND DISCUSSION: This 34-year-old gentleman presented with multiple complex medical issues. We will monitor the patient closely. Recommend a combination of antibiotic, antivirus, and antifungal medications. I would also recommend Infectious Disease consultation. Obtain fungal cultures and also swabs and viral titers also. Prognosis is guarded because of multiple complex medical issues. Further recommendations to follow. See orders for details. MMODL / IJN: [id number] /
--- NOTE | 2024-08-08 01:15 | XR ---
EXAM: XR Chest, 1 View CLINICAL HISTORY: ITS.REASON XR Reason: chf TECHNIQUE: Frontal view of the chest. COMPARISON: January 23, 2022. FINDINGS: Lungs: Mild pulmonary vascular congestion. Azygos fissure. Pleural space: Unremarkable. No pneumothorax. Heart: Unremarkable. No cardiomegaly. Mediastinum: Unremarkable. Bones/joints: Unremarkable. IMPRESSION: Mild pulmonary vascular congestion.
[2024-08-08 07:23] LABS: ALT 56 U/L (4-49); AST 55 U/L (17-59); African American GFR (CKD) >90 (>60 ml/min/1.73 sqM); Albumin 3.8 g/dL (3.5-5.0); Alkaline Phosphatase 57 U/L (38-126); Anion Gap 6 mmol/L; Blood Urea Nitrogen 15 mg/dL (9-20); Calcium 8.9 mg/dL (8.4-10.2); Carbon Dioxide 24 mmol/L (22-30); Chloride 106 mmol/L (98-107); Glucose 91 mg/dL (74-99); Non-African American GFR(CKD) >90 (>60 ml/min/1.73 sqM); Potassium 4.1 mmol/L (3.5-5.1); Sodium 136 mmol/L (137-145); Total Bilirubin 0.5 mg/dL (0.2-1.3); Total Protein 6.2 g/dL (6.3-8.2)
[2024-08-08 07:25] LABS: Basophils # (A) 0.02 10*3/uL (0.00-0.10); Basophils % (A) 0.2 %; Eosinophils # (A) 0.13 10*3/uL (0.04-0.35); Eosinophils % (A) 1.4 %; HCT 34.9 % (39.6-50.0); HGB 11.9 g/dL (13.0-17.0); Lymphocytes # (A) 2.78 10*3/uL (0.90-5.00); Lymphocytes % (A) 29.2 %; MCH 32.9 pg (27.0-32.0); MCHC 34.1 g/dL (32.0-37.0); MCV 96.4 fL (80.0-97.0); Mean Platelet Volume 9.8 fL (9.5-12.2); Monocytes # (A) 1.04 10*3/uL (0.20-1.00); Monocytes % (A) 10.9 %; Neutrophils # (A) 5.49 10*3/uL (1.80-7.70); Neutrophils % (A) 57.7 %; Platelet Count 263 10*3/uL (140-440); RBC 3.62 10*6/uL (4.40-5.60); RDW 11.7 % (11.5-14.5); WBC 9.52 10*3/uL (4.50-10.00)
[2024-08-08] MEDS: LORATADINE 10 MG TAB PO SCH (08:23)
[2024-08-08] MEDS: FLUCONAZOLE IN NACL,ISO-OSM 200 MG in SALINE 1 100ML.BAG IVPB SCH (08:23)
[2024-08-08] MEDS: PANTOPRAZOLE 40 MG/10 ML VIAL IV SCH (08:24)
[2024-08-08] MEDS: PARoxetine 20 MG TAB PO SCH (08:29)
[2024-08-08] MEDS: ALPRAZolam 0.25 MG TAB PO PRN (13:09)
--- NOTE | 2024-08-08 14:56 | P.CONS ---
History of Present Illness - Reason for Consult Consult date: 08/07/24 Facial cellulitis Requesting physician: Bridgette Cooper - Chief Complaint Upper lip swelling and multiple skin lesion x days - History of Present Illness Patient is a 34-year-old male with a past medical history significant for reflux hypertension ADHD bipolar disorder current everyday smoker presenting to the hospital for evaluation of upper lip swelling patient also have a history of recurrent folliculitis with multiple skin lesion with the patient mention he usually pops them and noticed to have significant worsening especially to the thigh groin upper arm area and similar lesion to the upper lip patient complaining of pain to be sharp moderate intensity without radiation denies high-grade fever on presentation to the hospital patient was afebrile no fever have been called subsequently patient was not tachycardic hypotensive or hypoxic he did have evidence of 11.2, creatinine 0.93 lactic acid was 2.2 liver enzymes mildly elevated urine has been negative urine drug screen was positive for tricyclic antidepressants patient did receive a dose of vancomycin infectious was consulted for further management of antibiotic therapy Review of Systems Positive point and negatives has been mentioned in the HPI, complete review of systems was performed and all other systems are negative Past Medical History Past Medical History: Asthma, GERD/Reflux, Hypertension, Musculoskeletal Dis order, Thyroid Disorder Additional Past Medical History / Comment(s): HX HTN-(NO CURRENT MEDS)., HERNIATED DISCS WITH BACK PAIN, CHRONIC CONSTIPATION (HX OF ENEMA USE AND HOSP ITALIZATION)., STATES HX OF PHARYNGITIS AND ENLARGED TONSILS TX RECENTLY. History of Any Multi-Drug Resistant Organisms: None Reported Past Surgical History: No Surgical Hx Reported Additional Past Surgical History / Comment(s): wisdom teeth Past Anesthesia/Blood Transfusion Reactions: Previous Problems w/ Anesthesia Additional Past Anesthesia/Blood Transfusion Reaction / Comm: difficulty coming out of anesthesia with emotional response and crying when wisdom teeth removed. Past Psychological History: ADD/ADHD, Anxiety, Bipolar, Depression Smoking Status: Current every day smoker Past Alcohol Use History: None Reported Past Drug Use History: None Reported - Past Family History Family Additional Family Medical History / Comment(s): Hypertension runs in the family Medications and Allergies Home Medications Medication Instructions Recorded Confirmed Type Albuterol Sulfate [Ventolin HFA] 2 puff INHALATION RT-Q6H PRN 08/07/24 08/07/24 History Buprenorphine/Naloxone 8Mg/2Mg 1 film SL BID 08/07/24 08/07/24 History [Suboxone 8-2Mg Film] Cetirizine HCl [Zyrtec] 10 mg PO DAILY 08/07/24 08/07/24 History Cyclobenzaprine [Flexeril] 10 mg PO BID 08/07/24 08/07/24 History Doxycycline Hyclate 100 mg PO BID 08/07/24 08/07/24 History Gabapentin 600 mg PO TID 08/07/24 08/07/24 History Naloxone HCl [Narcan] 4 mg NASAL DIRECTED PRN 08/07/24 08/07/24 History PARoxetine HCL [Paxil] 40 mg PO DAILY 08/07/24 08/07/24 History QUEtiapine [SEROquel] 50 mg PO HS 08/07/24 08/07/24 History busPIRone HCL 10 mg PO TID 08/07/24 08/07/24 History carvediloL [Coreg] 6.25 mg PO BID 08/07/24 08/07/24 History hydrOXYzine HCL [Atarax] 25 mg PO HS 08/07/24 08/07/24 History polyethylene glycoL 3350 [Miralax] 17 gm PO BID 08/07/24 08/07/24 History predniSONE [Deltasone] 20 mg PO BID 08/07/24 08/07/24 History valACYclovir HCL [Valtrex] 1,000 mg PO BID 08/07/24 08/07/24 History Omeprazole 40 mg PO DAILY 08/08/24 08/08/24 History Allergies Allergy/AdvReac Type Severity Reaction Status Date / Time Penicillins Allergy Rash/Hives Verified 08/07/24 15:00 Physical Exam Vitals: Vital Signs Temp Pulse Resp BP Pulse Ox 08/07/24 19:20 89 18 120/74 95 08/07/24 16:42 97.7 F 88 18 126/82 97 08/07/24 11:31 97.4 F L 90 18 138/92 99 Intake and Output 08/07/24 08/07/24 08/07/24 06:59 14:59 22:59 Other: Weight 110.677 kg GENERAL DESCRIPTION: Middle-age male lying in bed, no distress. No tachypnea or accessory muscle of respiration use. HEENT: Shows Pallor , no scleral icterus. Upper lip did have swelling and some purulent drainage in the middle part NECK: Trachea central, no thyromegaly. LUNGS: Unlabored breathing. Clear to auscultation anteriorly. No wheeze or crackle. HEART: S1, S2, regular rate and rhythm. No loud murmur ABDOMEN: Soft, no tenderness , guarding or rigidity, no organomegaly EXTREMITIES: No edema of feet. SKIN: Multiple skin lesion some of them have crusted over along the scrotum did have some drainage was cultured NEUROLOGICAL: The patient is awake, alert, oriented x3, mood and affect normal. Results CBC & Chem 7: 08/08/24 06:27 08/08/24 06:27 Labs: Abnormal Lab Results - Last 24 Hours (Table) 08/07/24 08/07/24 08/07/24 Range/Units 12:14 12:14 12:14 WBC 11.27 H (4.50-10.00) 10*3/uL RBC 4.09 L (4.40-5.60) 10*6/uL Hct 38.3 L (39.6-50.0) % MCH 33.3 H (27.0-32.0) pg Immature Gran # 0.05 H (0.00-0.04) 10*3/uL Neutrophils # 9.25 H (1.80-7.70) 10*3/uL Sodium 136 L (137-145) mmol/L Glucose 115 H (74-99) mg/dL Plasma Lactic Acid Mg 2.2 H* (0.7-2.0) mmol/L AST 89 H (17-59) U/L ALT 65 H (4-49) U/L C-Reactive Protein 2.3 H (<1.0) mg/dL TSH 0.178 L (0.465-4.680) mIU/L HSV I IgG Interpret (Negative) 08/07/24 Range/Units 12:14 WBC (4.50-10.00) 10*3/uL RBC (4.40-5.60) 10*6/uL Hct (39.6-50.0) % MCH (27.0-32.0) pg Immature Gran # (0.00-0.04) 10*3/uL Neutrophils # (1.80-7.70) 10*3/uL Sodium (137-145) mmol/L Glucose (74-99) mg/dL Plasma Lactic Acid Mg (0.7-2.0) mmol/L AST (17-59) U/L ALT (4-49) U/L C-Reactive Protein (<1.0) mg/dL TSH (0.465-4.680) mIU/L HSV I IgG Interpret Positive A (Negative) Assessment and Plan (1) Folliculitis Current Visit: Yes Status: Acute Code(s): L73.9 - FOLLICULAR DISORDER, UNSPECIFIED SNOMED Code(s): 47317504 (2) Penicillin allergy Current Visit: Yes Status: Acute Code(s): Z88.0 - ALLERGY STATUS TO PENICILLIN SNOMED Code(s): 34203771 (3) Facial cellulitis Current Visit: Yes Status: Acute Code(s): L03.211 - CELLULITIS OF FACE SNOMED Code(s): 944106805 Plan: 1patient did have significant swelling to the upper lip with some pustules and also have multiple skin lesion high clinical suspicion for staphylococcal skin and soft tissue infection involving multiple part of the body in this patient who keeps on touching popping and squeezing those lesion, clinically doubt fungal or viral etiology 2local culture has been obtained to guide further antibiotic therapy 3vancomycin pharmacy to dose target trough of 15 while watching kidney function and Vanco trough closely 4recommend to discontinue Diflucan and acyclovir as clinic not behaving as a f ungal or herpetic infection We will follow on clinical condition and cultures to further adjust medication if needed Thank you for this consultation we will follow the patient along with you Dictation was produced using [employer] dictation software. please excuse any grammatical, word or spelling errors. Time with Patient: Greater than 30
--- NOTE | 2024-08-08 14:58 | P.PN ---
Subjective Progress Note Date: 08/08/24 Principal diagnosis: Reason for follow-up is upper lip abscess and facial cellulitis Patient is a 34-year-old male with a past medical history significant for reflux hypertension ADHD bipolar disorder presenting to the hospital with upper lip swelling as well as multiple skin lesion concerning for staphylococcal skin and soft tissue infection. On today's evaluation that is 08/08/2024, the patient continues to be afebrile, the patient is on room air and breathing comfortably, the Pt denies having any chest pain or cough, the patient mention pain and swelling to the upper lip has slightly decreased still have multiple skin lesion no drainage. Patient white count normalized to 9.5 to creatinine 0.77 local cultures currently pending Objective - Vital Signs Vital signs: Vital Signs Temp 97.6 F 08/08/24 07:00 Pulse 82 08/08/24 07:00 Resp 16 08/08/24 07:00 BP 130/81 08/08/24 07:00 Pulse Ox 97 08/08/24 07:00 FiO2 Intake & Output 08/07/24 08/08/24 08/08/24 18:59 06:59 18:59 Intake Total 2520 444 Balance 2520 444 Weight 110.677 kg 110.677 kg Intake: Intake, IV Titration 1200 Amount Cefepime 2 gm In Dextrose 100 5% in Water 100 ml @ 200 mls/hr IVPB Q8H [facility] Rx#: [id number] Fluconazole in NaCl,Iso- 100 Osm 200 mg In Saline 1 100ml.bag @ 100 mls/hr IVPB DAILY [facility] Rx#: [id number] Fluconazole in NaCl,Iso- 200 Osm 400 mg In Saline 1 200ml.bag @ 100 mls/hr IVPB ONCE [facility] Rx#: [id number] Sodium Chloride 0.9% 1, 300 000 ml @ 75 mls/hr IV . [id number] [facility] Rx#:[id number] Vancomycin 1,750 mg In 500 Sodium Chloride 0.9% 500 ml 500 ml @ 167 mls/hr IVPB Q8HR [facility] Rx#: [id number] Oral 1320 444 Other: Voiding Method Toilet # Voids 2 - Exam GENERAL DESCRIPTION: Middle-age male lying in bed in no distress HEENT: Upper lip swelling slightly decreased no drainage was noticed RESPIRATORY SYSTEM: Unlabored breathing , decreased breath sounds at bases HEART: S1 S2 regular rate and rhythm , ABDOMEN: Soft , no tenderness EXTREMITIES: No edema feet - Labs CBC & Chem 7: 08/08/24 06:27 08/08/24 06:27 Labs: Abnormal Lab Results - Last 24 Hours (Table) 08/07/24 08/07/24 08/07/24 Range/Units 12:14 12:14 21:18 RBC (4.40-5.60) 10*6/uL Hgb (13.0-17.0) g/dL Hct (39.6-50.0) % MCH (27.0-32.0) pg Immature Gran # (0.00-0.04) 10*3/uL Monocytes # (0.20-1.00) 10*3/uL Sodium 136 L (137-145) mmol/L Glucose 115 H (74-99) mg/dL AST 89 H (17-59) U/L ALT 65 H (4-49) U/L C-Reactive Protein 2.3 H (<1.0) mg/dL Total Protein (6.3-8.2) g/dL TSH 0.178 L (0.465-4.680) mIU/L U Tricyclic Antidepress Detected H (NotDetected) HSV I IgG Interpret Positive A (Negative) 08/08/24 08/08/24 Range/Units 06:27 06:27 RBC 3.62 L (4.40-5.60) 10*6/uL Hgb 11.9 L (13.0-17.0) g/dL Hct 34.9 L (39.6-50.0) % MCH 32.9 H (27.0-32.0) pg Immature Gran # 0.06 H (0.00-0.04) 10*3/uL Monocytes # 1.04 H (0.20-1.00) 10*3/uL Sodium 136 L (137-145) mmol/L Glucose (74-99) mg/dL AST (17-59) U/L ALT 56 H (4-49) U/L C-Reactive Protein (<1.0) mg/dL Total Protein 6.2 L (6.3-8.2) g/dL TSH (0.465-4.680) mIU/L U Tricyclic Antidepress (NotDetected) HSV I IgG Interpret (Negative) Microbiology - Last 24 Hours (Table) 08/07/24 18:40 Gram Stain - Preliminary Other - Other Assessment and Plan (1) Facial cellulitis Current Visit: Yes Status: Acute Code(s): L03.211 - CELLULITIS OF FACE SNOMED Code(s): 743221453 (2) Failure of outpatient treatment Current Visit: Yes Status: Acute Code(s): Z78.9 - OTHER SPECIFIED HEALTH STATUS SNOMED Code(s): 334956149 (3) Folliculitis Current Visit: Yes Status: Acute Code(s): L73.9 - FOLLICULAR DISORDER, UNSPECIFIED SNOMED Code(s): 28131293 (4) Penicillin allergy Current Visit: Yes Status: Acute Code(s): Z88.0 - ALLERGY STATUS TO PENICILLIN SNOMED Code(s): 83516575 Plan: 1patient did have significant swelling to the upper lip with some pustules and also have multiple skin lesion high clinical suspicion for staphylococcal skin and soft tissue infection involving multiple part of the body in this patient who keeps on touching popping and squeezing those lesion, clinically doubt fungal or viral etiology 2local culture has been obtained which are currently pending 3patient will be treated vancomycin pharmacy to dose target trough of 15 while waiting for the culture to finalize Dictation was produced using [employer] dictation software. please excuse any gr ammatical, word or spelling errors. Time with Patient: Less than 30
[2024-08-08] MEDS: valACYclovir HCL 500 MG TAB PO SCH (17:18)
[2024-08-09] MEDS: MAGNESIUM HYDROXIDE 2,400 MG/30 ML CUP PO PRN (00:55)
[2024-08-09] MEDS: VANCOMYCIN TROUGH DUE 1 EACH MISC MISCELLANE ONE (07:00)
[2024-08-09 07:40] LABS: African American GFR (CKD) >90 (>60 ml/min/1.73 sqM); Non-African American GFR(CKD) >90 (>60 ml/min/1.73 sqM)
[2024-08-09] MEDS: SENNOSIDES 8.6 MG TAB PO SCH (08:25)
[2024-08-09] MEDS: HYDROcodone/APAP 5-325MG 1 EACH TAB PO PRN (12:12)
--- NOTE | 2024-08-09 12:59 | P.PN ---
Subjective Progress Note Date: 08/09/24 Principal diagnosis: Reason for follow-up is upper lip abscess and facial cellulitis Patient is a 34-year-old male with a past medical history significant for reflux hypertension ADHD bipolar disorder presenting to the hospital with upper lip swelling as well as multiple skin lesion concerning for staphylococcal skin and soft tissue infection. On today's evaluation that is 08/09/2024, Patient is afebrile patient is currently on room air and denies having any shortness of breath, the patient denies any chest pain or cough, the patient denies any nausea vomiting has been complaining of mostly constipation no bowel movement for the last few days mention pain and swelling to the upper lip has decreased. The patient did have a creatinine 0.76 cultures are currently pending Vanco trough is 20.4 Objective - Vital Signs Vital signs: Vital Signs Temp 97.7 F 08/09/24 07:00 Pulse 77 08/09/24 07:00 Resp 18 08/09/24 07:00 BP 134/75 08/09/24 07:00 Pulse Ox 99 08/09/24 07:00 FiO2 Intake & Output 08/08/24 08/09/24 08/09/24 18:59 06:59 18:59 Intake Total 924 1260 222 Balance 924 1260 222 Intake: IV 300 Sodium Chloride 0.9% 1, 300 000 ml @ 75 mls/hr IV . [id number] ON LICENSE OF [facility] Rx#:[id number] Oral 924 960 222 Other: Voiding Method Toilet Toilet # Voids 2 - Exam GENERAL DESCRIPTION: Middle-age male lying in bed in no distress HEENT: Upper lip swelling slightly decreased no drainage was noticed RESPIRATORY SYSTEM: Unlabored breathing , decreased breath sounds at bases HEART: S1 S2 regular rate and rhythm , ABDOMEN: Soft , no tenderness EXTREMITIES: No edema feet - Labs CBC & Chem 7: 08/08/24 06:27 08/09/24 07:00 Labs: Microbiology - Last 24 Hours (Table) 08/07/24 18:40 Gram Stain - Preliminary Other - Other Wound Culture - Preliminary 08/07/24 14:52 Blood Culture - Preliminary Blood Assessment and Plan (1) Facial cellulitis Current Visit: Yes Status: Acute Code(s): L03.211 - CELLULITIS OF FACE SNOMED Code(s): 651717032 (2) Failure of outpatient treatment Current Visit: Yes Status: Acute Code(s): Z78.9 - OTHER SPECIFIED HEALTH STATUS SNOMED Code(s): 187919927 (3) Folliculitis Current Visit: Yes Status: Acute Code(s): L73.9 - FOLLICULAR DISORDER, UNSPECIFIED SNOMED Code(s): 32378745 (4) Penicillin allergy Current Visit: Yes Status: Acute Code(s): Z88.0 - ALLERGY STATUS TO PENICILLIN SNOMED Code(s): 69078977 Plan: 1patient did have significant swelling to the upper lip with some pustules and also have multiple skin lesion high clinical suspicion for staphylococcal skin and soft tissue infection involving multiple part of the body in this patient who keeps on touching popping and squeezing those lesion, clinically doubt fungal or viral etiology 2local culture has been obtained which are currently pending as well as HSV PCR from the right upper lip lesion 3patient will be treated vancomycin pharmacy to dose target, level is t herapeutic along with the Valtrex while waiting for the culture to finalize did request medication for constipation will give a dose of lactulose Dictation was produced using idio dictation software. please excuse any grammatical, word or spelling errors. Time with Patient: Less than 30
--- NOTE | 2024-08-09 13:15 | PN ---
PROGRESS NOTE DATE OF SERVICE: 08/08/2024 HISTORY OF PRESENT ILLNESS: This is a 34-year-old gentleman, who was admitted with possible disseminated Ayah auris, herpes simplex is being closely monitored at this time. The Gram stain showed few gram-positive cocci. The patient will closely monitor the patient's multiple antibiotics, antifungals, and antibiotics at this time. PAST MEDICAL HISTORY: Reviewed. REVIEW OF SYSTEMS: A 14-point review of systems is negative except as mentioned earlier. CURRENT MEDICATIONS: Reviewed. PHYSICAL EXAMINATION: VITAL SIGNS: Pulse is 82, blood pressure 130/82, respirations 16. CHEST: Clear to auscultation. CARDIOVASCULAR: S1, S2. ABDOMEN: Soft. SKIN: Extensive skin lesions of the face, skin and also has significant lesions of the upper lip where the significant swelling is also present. LABORATORY DATA: Reviewed. ASSESSMENT: 1. Significant skin lesions with swollen upper lip, possibly disseminated herpes or disseminated Ayah albicans with sepsis. 2. HSV 1 positive IgG. 3. History of asthma. 4. Hypertension. 5. Hypothyroidism. 6. Multiple medical issues including anxiety, bipolar, depression. RECOMMENDATIONS AND DISCUSSION: Recommend to continue current medications, continue with monitoring, symptomatic treatment. Otherwise, await further testing including cultures. Continue the current medical regimen. Infectious Disease evaluation. Symptomatic treatment. Prognosis guarded. Further recommendations to follow. MMODL / IJN: [id number] /
[2024-08-09] MEDS: LACTULOSE 20 GM/30 ML CUP PO SCH ×2 (14:00→23:16)
[2024-08-09] MEDS: VANCOMYCIN 1,500 MG in SODIUM CHLORIDE 0.9% 500 ML 500 ML IVPB SCH (16:01)
--- NOTE | 2024-08-09 16:16 | CDI ---
Date: 08/09/2024 From: Priscila Hollis1 Email: [email or web address] Admit Date: 08/07/2024 02:44:00 PM Patient Name: Efrain Walker Visit Number: [id number] Discharge Date: N/A ATTENTION: The Clinical Documentation Specialists (CDI) and [facility] Coding Staff appreciate your assistance in clarifying documentation. Please respond to the clarification below the line at the bottom and electronically sign. The CDI & [facility] Coding staff will review the response and follow-up if needed. Please note: Queries are made part of the Legal Health Record. If you have any questions, please contact the author of this message via ITS. Dr. Stephane Pagan, Sepsis is documented in the H&P Report on 08/07/2024 - which may lack sufficient clinical evidence/support in the medical record. Additional clarification is requested. History/Risk Factors: 34-year-old male presented to [facility] ED for evaluation due to facial lesions and lip swelling. PMH: Asthma, hypertension, GERD Clinical Indicators: Documentation Location: Electronic Medical Record Vital Sign Trend: Date Time Temperature HR RR BP SpO2 08/07/2024 11:31 97.4 F (Oral) 90 18 138/92 99% on Room Air 08/07/2024 16:42 97.7 F (Axillary) 88 18 126/82 97% on Room Air 08/08/2024 07:00 97.6 F (Axillary) 82 16 130/81 97% on Room Air 08/09/2024 07:00 97.7 F (Oral) 77 18 134/75 99% on Room Air Lab Results: 08/07/2024 08/08/2024 WBC 11.27 9.52 Other Clinical Indicators: Blood Cultures (Collected on 08/07/2024): No growth after 24 hours Plasma Lactic Acid, Venous (08/07/2024): 2.2 1.0 C-Reactive Protein (08/07/2024): 2.3 H&P Report (08/07/2024): o Significant skin lesions with possibly disseminated herpes or disseminated Ayah with sepsis o HSV 1 positive IgG Infectious Disease Consult Note (08/07/2024): o Folliculitis o Facial Cellulitis Treatment: Infectious Disease Consultation Cefepime 2g IVPB Every 8 Hours (Discontinued 08/08/2024) Vancomycin 1750mg IVPB Every 8 Hours (Discontinued 08/09/2024) Vancomycin 1500mg IVPB Every 8 Hours Diflucan 400mg IVPB x 1 Diflucan 200mg IVPB Daily (Discontinued 08/08/2024) 0.9% Sodium Chloride IV Infusion @ 75mL/hr. 0.9% Sodium Chloride IV Bolus x 1 Liter Other Treatments this Admission: Valacyclovir HCL 1000mg Oral Every 8 Hours After work up and study, please clarify which diagnosis is most appropriate? [ ] Sepsis ruled out [ ] Sepsis is a valid diagnosis as evidenced by the following (please add rationale): [ ] Other, please specify [ ] Unable to determine SIRS Criteria (2 or more of the following may indicate SIRS): Temperature < 96.8F (36C) or > 101.0F (38.3C) Heart Rate > 90 bpm Respiratory Rate > 20 breaths/min or PaCO2 < 32 mmHg White Blood Cell Count > 12,000 or < 4,000 cells/mm3 or > 10% bands Sepsis ruled out MTDD
[2024-08-09] MEDS: BENZOCAINE 20 % GEL 11.9 GM TUBE MM PRN (21:28)
[2024-08-10 00:25] LABS: Influenza A Not Detected (Not Detectd); Influenza B Not Detected (Not Detectd); RSV Not Detected (Not Detectd)
[2024-08-10 04:44] LABS: African American GFR (CKD) >90 (>60 ml/min/1.73 sqM); Non-African American GFR(CKD) >90 (>60 ml/min/1.73 sqM)
--- NOTE | 2024-08-10 08:39 | PN ---
PROGRESS NOTE DATE OF SERVICE: 08/09/2024 HISTORY OF PRESENT ILLNESS: This 34-year-old gentleman admitted with significant disseminated ayah and also herpes simplex. He is on empiric antiviral and antifungal treatment. The patient was closely monitored at this time. The cultures are negative so far. PAST MEDICAL HISTORY: Reviewed. REVIEW OF SYSTEMS: Fourteen-point review of systems negative except as mentioned earlier. CURRENT MEDICATIONS: Reviewed. PHYSICAL EXAMINATION: VITAL SIGNS: Pulse is 77, blood pressure 130/70, and respirations 18. HEENT: Conjunctivae normal. Oral lesion present. CHEST: Clear to auscultation. CARDIOVASCULAR: S1, S2. ABDOMEN: Soft. SKIN: Lesion present. LABORATORY DATA: Reviewed. ASSESSMENT: 1. Significant skin lesions, swollen upper lip, possibly disseminated herpes or disseminated Ayah albicans with sepsis. 2. HSV-1 positive IgG. 3. History of asthma. 4. Hypertension. 5. Hypothyroidism. 6. Multiple medical issues including anxiety, bipolar depression. RECOMMEND CARE: Recommend to continue current management and treatment. Otherwise, at this time, I would recommend to continue with antivirals and antibiotics. Guarded prognosis. Further recommendations to follow. MMODL / IJN: [id number] /
[2024-08-10] MEDS ORDERED: LACTULOSE 20 GM/30 ML CUP PO SCH (09:00)
--- NOTE | 2024-08-10 14:52 | P.PN ---
Subjective Progress Note Date: 08/10/24 Principal diagnosis: Reason for follow-up is upper lip abscess and facial cellulitis Patient is a 34-year-old male with a past medical history significant for reflux hypertension ADHD bipolar disorder presenting to the hospital with upper lip swelling as well as multiple skin lesion concerning for staphylococcal skin and soft tissue infection. On today's evaluation that is 08/10/2024, patient has been afebrile, patient is breathing comfortably and is currently on room air, patient denies having any chest pain and cough, patient denies nausea vomiting or diarrhea and no abdominal pain pain to the upper lip as well as multiple skin lesion has decreased in intensity. Patient did have a creatinine 0.80 HSV PCR from the upper lip lesion negative wound cultures so far negative blood cultures pending Objective - Vital Signs Vital signs: Vital Signs Temp 97.5 F L 08/10/24 09:27 Pulse 96 08/10/24 09:27 Resp 16 08/10/24 09:27 BP 136/84 08/10/24 09:27 Pulse Ox 98 08/10/24 09:27 FiO2 Intake & Output 08/09/24 08/10/24 08/10/24 18:59 06:59 18:59 Intake Total 912 180 Balance 912 180 Intake: IV 240 Sodium Chloride 0.9% 1, 240 000 ml @ 75 mls/hr IV . [id number] [facility] Rx#:[id number] Oral 672 180 Other: Voiding Method Toilet Toilet # Voids 2 3 0 # Bowel Movements 0 - Exam GENERAL DESCRIPTION: Middle-age male lying in bed in no distress HEENT: Upper lip swelling slightly decreased no drainage was noticed RESPIRATORY SYSTEM: Unlabored breathing , decreased breath sounds at bases HEART: S1 S2 regular rate and rhythm , ABDOMEN: Soft , no tenderness EXTREMITIES: No edema feet - Labs CBC & Chem 7: 08/08/24 06:27 08/10/24 03:21 Labs: Microbiology - Last 24 Hours (Table) 08/07/24 18:40 Gram Stain - Final Other - Other Wound Culture - Final 08/07/24 14:52 Blood Culture - Preliminary Blood Assessment and Plan (1) Facial cellulitis Current Visit: Yes Status: Acute Code(s): L03.211 - CELLULITIS OF FACE SNOMED Code(s): 545169308 (2) Failure of outpatient treatment Current Visit: Yes Status: Acute Code(s): Z78.9 - OTHER SPECIFIED HEALTH STATUS SNOMED Code(s): 218656277 (3) Folliculitis Current Visit: Yes Status: Acute Code(s): L73.9 - FOLLICULAR DISORDER, UNSPECIFIED SNOMED Code(s): 04741690 (4) Penicillin allergy Current Visit: Yes Status: Acute Code(s): Z88.0 - ALLERGY STATUS TO PENICILLIN SNOMED Code(s): 78110261 Plan: 1patient did have significant swelling to the upper lip with some pustules and also have multiple skin lesion high clinical suspicion for staphylococcal skin and soft tissue infection involving multiple part of the body in this patient who keeps on touching popping and squeezing those lesion, clinically doubt fungal or viral etiology 2local culture has been obtained which are so far negative, HSV PCR from the right upper lip lesion has been negative 3patient will be treated vancomycin pharmacy to dose however discontinue Valtrex consider course of oral Keflex and doxycycline on discharge Dictation was produced using [employer] dictation software. please excuse any grammatical, word or spelling errors.
--- NOTE | 2024-08-10 18:17 | US ---
EXAMINATION TYPE: US venous doppler duplex LE BI DATE OF EXAM: 08/10/2024 6:07 PM COMPARISON: NONE CLINICAL INDICATION: Male, 34 years old with history of dvt; leg swelling. pt has herpes. not on thin ners no hx dvt , Pain TECHNIQUE: The lower extremity deep venous system is examined utilizing real time linear array sonog edil with graded compression, color doppler sonography, and spectral doppler. SIDE PERFORMED: Bilateral FINDINGS: VESSELS IMAGED: Common Femoral Vein Deep Femoral Vein Greater Saphenous Vein * Femoral Vein Popliteal Vein Small Saphenous Vein * Proximal Calf Veins (* superficial vessels) Right Leg: Negative for DVT, Color Doppler imaging shows patency of the vessels. Spectral waveforms are within normal limits. Left Leg: Negative for DVT, Color Doppler imaging shows patency of the vessels. Spectral waveforms a re within normal limits. IMPRESSION: No ultrasound evidence for deep venous thrombosis. [facility], , 08/10/2024 6:15 PM
[2024-08-10] MEDS: methylPREDNISolone SOD SUCCI 40 MG/ML 1 ML VIAL IV STA (22:32)
[2024-08-10] MEDS: FUROSEMIDE 10 MG/ML 4 ML VIAL IV STA (22:33)
--- NOTE | 2024-08-11 01:57 | XR ---
EXAM: XR Chest, 1 View CLINICAL HISTORY: ITS.REASON XR Reason: SOB TECHNIQUE: Frontal view of the chest. COMPARISON: No relevant prior studies available. FINDINGS: Lungs: Azygous fissure. No consolidation. Pleural space: Unremarkable. No pneumothorax. Heart: Unremarkable. No cardiomegaly. Mediastinum: Unremarkable. Bones/joints: Unremarkable. IMPRESSION: No consolidation.
--- NOTE | 2024-08-11 02:30 | PN ---
PROGRESS NOTE DATE OF SERVICE: 08/10/2024 SUBJECTIVE: This 34-year-old gentleman is admitted significant skin lesions with possibly disseminated herpes and ayah. He is being closely monitored. No chest pain. No palpitation. Cultures are negative so far. OBJECTIVE: VITAL SIGNS: Pulse 96, blood pressure n, respirations 16. CHEST: Clear to auscultation. CARDIOVASCULAR: S1, S2. ABDOMEN: Soft. SKIN: Skin lesions around the mouth on the face and on the skin also present, disseminated. ASSESSMENT: 1. Significant skin lesions with swollen upper lip, possibly disseminated herpes or disseminated Ayah albicans with sepsis, present on admission. 2. HSV positive IgG. 3. History of asthma. 4. Hypertension. 5. Hypothyroidism. 6. Multiple medical issues including anxiety, bipolar, depression. RECOMMENDATION: Recommend to continue current medications, continue with antiviral, anti-fungal, and continue to monitor. Possible discharge within the next 24 hours. MMODL / IJN: [id number] / MTDD
[2024-08-11 04:15] VITALS: RESP 16
[2024-08-11] MEDS: ALBUTEROL NEBULIZED 2.5 MG/3 ML INHALATION PRN (04:34)
[2024-08-11 07:33] LABS: ALT 40 U/L (4-49); AST 31 U/L (17-59); African American GFR (CKD) >90 (>60 ml/min/1.73 sqM); Albumin 4.4 g/dL (3.5-5.0); Alkaline Phosphatase 80 U/L (38-126); Anion Gap 11 mmol/L; Blood Urea Nitrogen 14 mg/dL (9-20); C Reactive Protein 1.5 mg/dL (<1.0); Calcium 10.1 mg/dL (8.4-10.2); Carbon Dioxide 26 mmol/L (22-30); Chloride 96 mmol/L (98-107); Glucose 138 mg/dL (74-99); Non-African American GFR(CKD) >90 (>60 ml/min/1.73 sqM); Potassium 5.1 mmol/L (3.5-5.1); Sodium 133 mmol/L (137-145); Total Bilirubin 0.3 mg/dL (0.2-1.3); Total Protein 6.8 g/dL (6.3-8.2)
[2024-08-11 07:40] LABS: Basophils # (A) 0.04 10*3/uL (0.00-0.10); Basophils % (A) 0.4 %; Eosinophils # (A) 0.01 10*3/uL (0.04-0.35); Eosinophils % (A) 0.1 %; HCT 34.8 % (39.6-50.0); HGB 12.8 g/dL (13.0-17.0); Lymphocytes # (A) 0.95 10*3/uL (0.90-5.00); Lymphocytes % (A) 9.6 %; MCH 33.7 pg (27.0-32.0); MCHC 36.8 g/dL (32.0-37.0); MCV 91.6 fL (80.0-97.0); Mean Platelet Volume 10.2 fL (9.5-12.2); Monocytes # (A) 0.24 10*3/uL (0.20-1.00); Monocytes % (A) 2.4 %; Neutrophils # (A) 8.45 10*3/uL (1.80-7.70); Neutrophils % (A) 85.5 %; Platelet Count 341 10*3/uL (140-440); RDW 11.3 % (11.5-14.5); WBC 9.89 10*3/uL (4.50-10.00)
[2024-08-11 08:12] VITALS: BP 128/78; PULSE 89; TEMP 98.2
--- NOTE | 2024-08-11 14:24 | P.PN ---
Subjective Progress Note Date: 08/11/24 Principal diagnosis: Reason for follow-up is upper lip abscess and facial cellulitis Patient is a 34-year-old male with a past medical history significant for reflux hypertension ADHD bipolar disorder presenting to the hospital with upper lip swelling as well as multiple skin lesion concerning for staphylococcal skin and soft tissue infection. On today's evaluation that is 08/11/2024, Patient is afebrile this morning patient denies having any chest pain shortness of breath or cough, the patient is currently on room air, patient denies any abdominal pain no diarrhea no nausea no vomiting patient mention improvement to the upper lip as well as the rest of the body skin lesion feeling better wants to go home. Patient did have a white count of 9.89, creatinine 0.71 cultures has been negative Objective - Vital Signs Vital signs: Vital Signs Temp 98.2 F 08/11/24 08:11 Pulse 89 08/11/24 08:11 Resp 16 08/11/24 07:50 BP 128/78 08/11/24 08:11 Pulse Ox 94 L 08/11/24 08:11 FiO2 Intake & Output 08/10/24 08/11/24 08/11/24 18:59 06:59 18:59 Intake Total 2930 Balance 2930 Intake: IV 900 Sodium Chloride 0.9% 1, 900 000 ml @ 75 mls/hr IV . [id number] [facility] Rx#:[id number] Intake, IV Titration 500 Amount Vancomycin 1,500 mg In 500 Sodium Chloride 0.9% 500 ml 500 ml @ 167 mls/hr IVPB Q8HR [facility] Rx#: [id number] Oral 1530 Other: # Voids 5 3 # Bowel Movements 1 - Exam GENERAL DESCRIPTION: Middle-age male lying in bed in no distress HEENT: Upper lip swelling slightly decreased no drainage was noticed RESPIRATORY SYSTEM: Unlabored breathing , decreased breath sounds at bases HEART: S1 S2 regular rate and rhythm , ABDOMEN: Soft , no tenderness EXTREMITIES: No edema feet - Labs CBC & Chem 7: 08/11/24 06:44 08/11/24 06:44 Labs: Abnormal Lab Results - Last 24 Hours (Table) 08/11/24 08/11/24 Range/Units 06:44 06:44 RBC 3.80 L (4.40-5.60) 10*6/uL Hgb 12.8 L (13.0-17.0) g/dL Hct 34.8 L (39.6-50.0) % MCH 33.7 H (27.0-32.0) pg Immature Gran # 0.20 H (0.00-0.04) 10*3/uL Neutrophils # 8.45 H (1.80-7.70) 10*3/uL Eosinophils # 0.01 L (0.04-0.35) 10*3/uL Sodium 133 L (137-145) mmol/L Chloride 96 L (98-107) mmol/L Glucose 138 H (74-99) mg/dL C-Reactive Protein 1.5 H (<1.0) mg/dL Microbiology - Last 24 Hours (Table) 08/07/24 14:52 Blood Culture - Preliminary Blood 08/07/24 18:40 Gram Stain - Final Other - Other Wound Culture - Final Assessment and Plan (1) Facial cellulitis Current Visit: Yes Status: Acute Code(s): L03.211 - CELLULITIS OF FACE SNOMED Code(s): 677864140 (2) Failure of outpatient treatment Current Visit: Yes Status: Acute Code(s): Z78.9 - OTHER SPECIFIED HEALTH STATUS SNOMED Code(s): 425928585 (3) Folliculitis Current Visit: Yes Status: Acute Code(s): L73.9 - FOLLICULAR DISORDER, UNSPECIFIED SNOMED Code(s): 98301266 (4) Penicillin allergy Current Visit: Yes Status: Acute Code(s): Z88.0 - ALLERGY STATUS TO PENICILLIN SNOMED Code(s): 51392491 Plan: 1patient did have significant swelling to the upper lip with some pustules and also have multiple skin lesion high clinical suspicion for staphylococcal skin and soft tissue infection involving multiple part of the body in this patient who keeps on touching popping and squeezing those lesion, clinically doubt fungal or viral etiology 2local culture has been obtained which are so far negative, HSV PCR from the right upper lip lesion has been negative 3patient has shown overall improvement with vancomycin pharmacy to dose with a culture negative for resistant pathogen plan is to finish therapy with course of oral Keflex and doxycycline on discharge Dictation was produced using avocadostoreation software. please excuse any grammatical, word or spelling errors. Time with Patient: Less than 30
[2024-08-11] MEDS ORDERED: VANCOMYCIN TROUGH DUE 1 EACH MISC MISCELLANE ONE (15:00)
--- NOTE | 2024-08-11 15:21 | DS ---
DISCHARGE SUMMARY FINAL DIAGNOSES: 1. Significant skin lesions with swollen upper lip, possibly disseminated herpes or disseminated Ayah albicans with sepsis present on admission, improved. 2. HSV positive IgG. 3. History of asthma. 4. Hypertension. 5. Hypothyroidism. DISCHARGE DISPOSITION: The patient is being discharged in stable condition and guarded prognosis. HISTORY OF PRESENT ILLNESS: This 34-year-old gentleman admitted with significant oral lesions and significant skin lesions with failure of outpatient treatment. Treated symptomatically and empirically with antivirals and antifungals, improved significantly. The patient was discharged in a stable condition with guarded prognosis. DISCHARGE MEDICATIONS: Valtrex t.i.d., nystatin, and p.r.n. medications. Follow up with Primary and Infectious Disease as recommended. Once again the patient is being discharged in stable condition with guarded prognosis. MMODL / IJN: [id number] /
== END 2024-08-11 14:00 | disposition home or self-care (01) | DRG 383 ==
LOC: EC 11:29 → 6NMEDSUR 14:43 → OBSVTOIN 14:44 → 6NMEDSUR 15:58 → 1SOBS 18:45
PROVIDERS: ADMIT Internal Medicine; ATTEND Internal Medicine
DX: B00.9 Herpesviral infection, unspecified (principal); F41.9 Anxiety disorder, unspecified; F31.30 Bipolar disorder, current episode depressed, mild or moderate severity, unspecified; F17.200 Nicotine dependence, unspecified, uncomplicated; E03.9 Hypothyroidism, unspecified; I10 Essential (primary) hypertension; J45.909 Unspecified asthma, uncomplicated; L03.211 Cellulitis of face; K13.0 Diseases of lips; L73.9 Follicular disorder, unspecified; F90.9 Attention-deficit hyperactivity disorder, unspecified type; K21.9 Gastro-esophageal reflux disease without esophagitis; K59.09 Other constipation; M54.9 Dorsalgia, unspecified; Z88.0 Allergy status to penicillin; Z79.899 Other long term (current) drug therapy; Z11.52 Encounter for screening for COVID-19; Z28.310 Unvaccinated for COVID-19; Z28.21 Immunization not carried out because of patient refusal
CPT/HCPCS: 36415; 71045; 80053; 80202; 80306; 81003; 82565; 83605; 84439; 84443; 85025; 85652; 86140; 86695; 86696; 87040; 87070; 87102; 87205; 87529; 87636; 93970; 94640; 96361; 96365; 96366; 96367; 96375; 99285; 99406

== ENCOUNTER 2024-08-11 23:33 | Emergency (ER) | payer OTHER ==
[2024-08-11 23:59] VITALS: RESP 18
--- NOTE | 2024-08-12 00:44 | ED ---
Abdominal Pain HPI - General Chief Complaint: Abdominal Pain Stated Complaint: abd pain Time Seen by Provider: 08/12/24 00:42 Source: patient, EMS, RN notes reviewed Mode of arrival: wheelchair Limitations: no limitations - History of Present Illness Initial Comments: 34-year-old male presenting for abdominal pain x 1.5 hours. States he was napping when he woke up and suddenly began to experience sharp, shooting, constant pain in the center of the abdomen. Pain does not radiate. States he has never had this pain before. He was recently admitted inpatient for disseminated skin lesions with sepsis and was discharged earlier today. He is currently on doxycycline, Keflex, and Valtrex. States he was not having this abdominal pain during his hospital stay. Denies history of abdominal surgeries. States he has been constipated and had a small bowel movement today with an enema. States he does take Suboxone and would like to avoid opioids if possible. - Related Data Home Medications Medication Instructions Recorded Confirmed Albuterol Sulfate [Ventolin HFA] 2 puff INHALATION RT-Q6H PRN 08/07/24 08/07/24 Buprenorphine/Naloxone 8Mg/2Mg 1 film SL BID 08/07/24 08/07/24 [Suboxone 8-2Mg Film] Cetirizine HCl [Zyrtec] 10 mg PO DAILY 08/07/24 08/07/24 Cyclobenzaprine [Flexeril] 10 mg PO BID 08/07/24 08/07/24 Gabapentin 600 mg PO TID 08/07/24 08/07/24 Naloxone HCl [Narcan] 4 mg NASAL DIRECTED PRN 08/07/24 08/07/24 PARoxetine HCL [Paxil] 40 mg PO DAILY 08/07/24 08/07/24 QUEtiapine [SEROquel] 50 mg PO HS 08/07/24 08/07/24 busPIRone HCL 10 mg PO TID 08/07/24 08/07/24 carvediloL [Coreg] 6.25 mg PO BID 08/07/24 08/07/24 hydrOXYzine HCL [Atarax] 25 mg PO HS 08/07/24 08/07/24 polyethylene glycoL 3350 [Miralax] 17 gm PO BID 08/07/24 08/07/24 predniSONE [Deltasone] 20 mg PO BID 08/07/24 08/07/24 Omeprazole 40 mg PO DAILY 08/08/24 08/08/24 Previous Rx's Medication Instructions Recorded Acetaminophen Tab [Tylenol] 650 mg PO Q6HR PRN tab 08/11/24 Benzocaine 20 % Gel [Orajel] 1 applic MM BID PRN 5 Days each 08/11/24 Cephalexin [Keflex] 500 mg PO Q8HR 7 Days #21 cap 08/11/24 Doxycycline 100 mg PO BID #14 tab 08/11/24 Lactulose [Cephulac] 20 gm PO DAILY PRN #50 ml 08/11/24 Nystatin 100,000 Unit/ml Susp 3,000,000 unit PO TID 5 Days ml 08/11/24 [Mycostatin Oral Susp] valACYclovir HCL [Valtrex] 1,000 mg PO TID #20 tab 08/11/24 Allergies Allergy/AdvReac Type Severity Reaction Status Date / Time Penicillins Allergy Rash/Hives Verified 08/11/24 23:55 Review of Systems ROS Statement: Those systems with pertinent positive or pertinent negative responses have been documented in the HPI. ROS Other: All systems not noted in ROS Statement are negative. Past Medical History Past Medical History: Asthma, GERD/Reflux, Hypertension, Musculoskeletal Disorder, Thyroid Disorder Additional Past Medical History / Comment(s): HX HTN-(NO CURRENT MEDS)., NATALYA IATED DISCS WITH BACK PAIN, CHRONIC CONSTIPATION (HX OF ENEMA USE AND HOSPITALIZATION)., STATES HX OF PHARYNGITIS AND ENLARGED TONSILS TX RECENTLY. History of Any Multi-Drug Resistant Organisms: Other MDRO Date of last positivie culture/infection: 2024 MDRO Source:: skin Past Surgical History: No Surgical Hx Reported Additional Past Surgical History / Comment(s): wisdom teeth Past Anesthesia/Blood Transfusion Reactions: Previous Problems w/ Anesthesia Additional Past Anesthesia/Blood Transfusion Reaction / Comment(s): difficulty coming out of anesthesia with emotional response and crying when wisdom teeth removed. Past Psychological History: ADD/ADHD, Anxiety, Bipolar, Depression Smoking Status: Current every day smoker Past Alcohol Use History: None Reported Past Drug Use History: None Reported - Past Family History Family Additional Family Medical History / Comment(s): Hypertension runs in the family General Exam Limitations: no limitations General appearance: alert, other (Wincing in pain during examination) Head exam: Present: atraumatic, normocephalic, normal inspection Eye exam: Present: normal appearance, PERRL, EOMI. Absent: scleral icterus, conjunctival injection, periorbital swelling Respiratory exam: Present: normal lung sounds bilaterally. Absent: respiratory distress, wheezes, rales, rhonchi, stridor Cardiovascular Exam: Present: regular rate, normal rhythm, normal heart sounds. Absent: systolic murmur, diastolic murmur, rubs, gallop, clicks GI/Abdominal exam: Present: soft, distended, normal bowel sounds. Absent: tenderness, guarding, rebound, rigid Neurological exam: Present: alert, oriented X3 Psychiatric exam: Present: normal affect, normal mood Skin exam: Present: warm, dry, intact, normal color. Absent: rash Course Vital Signs 08/11/24 08/12/24 23:55 03:18 Temperature 97.8 F 98.8 F Pulse Rate 88 86 Respiratory 18 18 Rate Blood Pressure 167/106 148/95 O2 Sat by Pulse 98 97 Oximetry Medical Decision Making - Medical Decision Making Was pt. sent in by a medical professional or institution (, PA, WIRELINE OPERATOR, urgent care, hospital, or jail...) When possible be specific @ -No Did you speak to anyone other than the patient for history (EMS, parent, family, police, friend...)? What history was obtained from this source @ -No Did you review nursing and triage notes (agree or disagree)? Why? @ -I reviewed and agree with nursing and triage notes Were old charts reviewed (outside hosp., previous admission, EMS record, old EKG, old radiological studies, urgent care reports/EKG's, jail records)? Report findings @ -Admission notes reviewed including lab work and consultation notes Differential Diagnosis (chest pain, altered mental status, abdominal pain women, abdominal pain men, vaginal bleeding, weakness, fever, dyspnea, syncope, headache, dizziness, GI bleed, back pain, seizure, CVA, palpatations, mental health, musculoskeletal)? @ -Differential Abdominal Pain Men: Appendicitis, cholecystitis, diverticulosis, ischemic bowel, pancreatitis, hepatitis, UTI, gastroenteritis, AAA, incarcerated hernia, bowel obstruction, constipation, inflammatory bowel, hepatitis, peptic ulcer disease, splenic infarction, perforated viscus, testicular torsion, this is not meant to be an all-inclusive list EKG interpreted by me (3pts min.). @ -None X-rays interpreted by me (1pt min.). @ -None done CT interpreted by me (1pt min.). @ -CT abdomen pelvis reveals colon distended with gas and stool, mild surrounding fat stranding/edema, no obstructing lesion no small bowel obstruction U/S interpreted by me (1pt. min.). @ -None done What testing was considered but not performed or refused? (CT, X-rays, U/S, labs)? Why? @ -None What meds were considered but not given or refused? Why? @ -None Did you discuss the management of the patient with other professionals (professionals i.e. DrBharathi, PA, WIRELINE OPERATOR, lab, RT, psych nurse, social insurance specialist, licensed insurance sales agent, teacher, prison officer, case hardener)? Give summary @ -My ED attending Dr. Torres spoke with general surgeon Dr. Fisher who recommends overnight observation Was smoking cessation discussed for >3mins.? @ -No Was critical care preformed (if so, how long)? @ -No Were there social determinants of health that impacted care today? How? (Homelessness, low income, unemployed, alcoholism, drug addiction, transportation, low edu. Level, literacy, decrease access to med. care, custodial, rehab)? @ -No Was there de-escalation of care discussed even if they declined (Discuss DNR or withdrawal of care, Hospice)? DNR status @ -No What co-morbidities impacted this encounter? (DM, HTN, Smoking, COPD, CAD, Cancer, CVA, ARF, Chemo, Hep., AIDS, mental health diagnosis, sleep apnea, mor bid obesity)? @ -None Was patient admitted / discharged? Hospital course, mention meds given and rou te, prescriptions, significant lab abnormalities, going to OR and other pertinent info. @ - discharge. 34-year-old male presenting for abdominal pain x 1.5 hours ago. Patient was discharged today after admission for disseminated skin lesions with sepsis. Patient is hypertensive. Abdomen is distended however nontender to palpation. Provided with IV fluids and analgesics. Lab work remarkable for leukocytosis with white blood cell count 18. Lactic acid 0.8. CT abdomen pelvis reveals colon distended with gas and stool, mild surrounding fat stranding/edema, no obstructio obstructing lesion no small bowel obstruction. Upon reevaluation, patient reports he passed a large amount of gas and feels much better and would like to be discharged. I believe this is reasonable as there is no obstructing lesion or small bowel obstruction. Appropriate return precautions and bowel regimen discussed. Case was discussed with my ED attending Dr. Torres. Undiagnosed new problem with uncertain prognosis? @ -No Drug Therapy requiring intensive monitoring for toxicity (Heparin, Nitro, Insulin, Cardizem)? @ -No Were any procedures done? @ -No Diagnosis/symptom? @ -Constipation Acute, or Chronic, or Acute on Chronic? @ -Acute Uncomplicated (without systemic symptoms) or Complicated (systemic symptoms)? @ -Uncomplicated Side effects of treatment? @ -No Exacerbation, Progression, or Severe Exacerbation? @ -No Poses a threat to life or bodily function? How? (Chest pain, [place], [place], pneumonia, PE, COPD, DKA, ARF, appy, cholecystitis, CVA, Diverticulitis, Homicidal, Suicidal, threat to staff... and all critical care pts) @ -Not at this time - Lab Data Result diagrams: 08/12/24 01:50 08/12/24 01:50 Lab Results 08/12/24 08/12/24 08/12/24 Range/Units 01:48 01:50 01:50 WBC 18.08 H (4.50-10.00) 10*3/uL RBC 4.00 L (4.40-5.60) 10*6/uL Hgb 13.3 (13.0-17.0) g/dL Hct 36.9 L (39.6-50.0) % MCV 92.3 (80.0-97.0) fL MCH 33.3 H (27.0-32.0) pg MCHC 36.0 (32.0-37.0) g/dL Plt Count 335 (140-440) 10*3/uL MPV 9.6 (9.5-12.2) fL Immature Gran % (Auto) 1.1 % Neutrophils % 78.5 % Lymphocytes % 12.2 % Monocytes % 7.2 % Eosinophils % 0.8 % Basophils % 0.2 % Immature Gran # 0.19 H (0.00-0.04) 10*3/uL Neutrophils # 14.19 H (1.80-7.70) 10*3/uL Lymphocytes # 2.21 (0.90-5.00) 10*3/uL Monocytes # 1.30 H (0.20-1.00) 10*3/uL Eosinophils # 0.15 (0.04-0.35) 10*3/uL Basophils # 0.04 (0.00-0.10) 10*3/uL Sodium 134 L (137-145) mmol/L Potassium 4.0 (3.5-5.1) mmol/L Chloride 95 L (98-107) mmol/L Carbon Dioxide 32 H (22-30) mmol/L Anion Gap 7 mmol/L BUN 13 (9-20) mg/dL Creatinine 0.78 (0.66-1.25) mg/dL Est GFR (CKD-EPI)AfAm >90 (>60 ml/min/1.73 sqM) Est GFR (CKD-EPI)NonAf >90 (>60 ml/min/1.73 sqM) Glucose 102 H (74-99) mg/dL Plasma Lactic Acid Mg (0.7-2.0) mmol/L Calcium 9.8 (8.4-10.2) mg/dL Total Bilirubin 0.4 (0.2-1.3) mg/dL AST 28 (17-59) U/L ALT 38 (4-49) U/L Alkaline Phosphatase 69 (38-126) U/L Total Protein 6.7 (6.3-8.2) g/dL Albumin 4.3 (3.5-5.0) g/dL Lipase 31 (23-300) U/L Urine Color Colorless Urine Appearance Clear (Clear) Urine pH 6.5 (5.0-8.0) Ur Specific [place] >1.050 H (1.001-1.035) Urine Protein Negative (Negative) Urine Glucose (UA) Negative (Negative) Urine Ketones Negative (Negative) Urine Blood Negative (Negative) Urine Nitrite Negative (Negative) Urine Bilirubin Negative (Negative) Urine Urobilinogen <2.0 (<2.0) mg/dL Ur Leukocyte Esterase Negative (Negative) 08/12/24 Range/Units 01:50 WBC (4.50-10.00) 10*3/uL RBC (4.40-5.60) 10*6/uL Hgb (13.0-17.0) g/dL Hct (39.6-50.0) % MCV (80.0-97.0) fL MCH (27.0-32.0) pg MCHC (32.0-37.0) g/dL Plt Count (140-440) 10*3/uL MPV (9.5-12.2) fL Immature Gran % (Auto) % Neutrophils % % Lymphocytes % % Monocytes % % Eosinophils % % Basophils % % Immature Gran # (0.00-0.04) 10*3/uL Neutrophils # (1.80-7.70) 10*3/uL Lymphocytes # (0.90-5.00) 10*3/uL Monocytes # (0.20-1.00) 10*3/uL Eosinophils # (0.04-0.35) 10*3/uL Basophils # (0.00-0.10) 10*3/uL Sodium (137-145) mmol/L Potassium (3.5-5.1) mmol/L Chloride (98-107) mmol/L Carbon Dioxide (22-30) mmol/L Anion Gap mmol/L BUN (9-20) mg/dL Creatinine (0.66-1.25) mg/dL Est GFR (CKD-EPI)AfAm (>60 ml/min/1.73 sqM) Est GFR (CKD-EPI)NonAf (>60 ml/min/1.73 sqM) Glucose (74-99) mg/dL Plasma Lactic Acid Mg 0.8 (0.7-2.0) mmol/L Calcium (8.4-10.2) mg/dL Total Bilirubin (0.2-1.3) mg/dL AST (17-59) U/L ALT (4-49) U/L Alkaline Phosphatase (38-126) U/L Total Protein (6.3-8.2) g/dL Albumin (3.5-5.0) g/dL Lipase (23-300) U/L Urine Color Urine Appearance (Clear) Urine pH (5.0-8.0) Ur Specific [place] (1.001-1.035) Urine Protein (Negative) Urine Glucose (UA) (Negative) Urine Ketones (Negative) Urine Blood (Negative) Urine Nitrite (Negative) Urine Bilirubin (Negative) Urine Urobilinogen (<2.0) mg/dL Ur Leukocyte Esterase (Negative) Disposition Clinical Impression: Constipation Disposition: HOME SELF-CARE Condition: Stable Instructions (If sedation given, give patient instructions): Constipation (ED) Additional Instructions: Proceed with your bowel regimen as discussed. Please return to the Emergency Department if symptoms worsen or any other concerns. Is patient prescribed a controlled substance at d/c from ED?: No Referrals: Valentín Augustine DO [Primary Care Provider] - 1-2 days Time of Disposition: 03:55
[2024-08-12] MEDS: ACETAMINOPHEN IV (For NPO) 1,000 MG in EMPTY BAG 1 BAG IVPB STA (01:44)
[2024-08-12] MEDS: KETOROLAC 15 MG/ML 1 ML VIAL IVP STA (01:44)
[2024-08-12] MEDS: SODIUM CHLORIDE 0.9% 1,000 ML IV STA (01:45)
[2024-08-12 02:06] LABS: Basophils # (A) 0.04 10*3/uL (0.00-0.10); Basophils % (A) 0.2 %; Eosinophils # (A) 0.15 10*3/uL (0.04-0.35); Eosinophils % (A) 0.8 %; HCT 36.9 % (39.6-50.0); HGB 13.3 g/dL (13.0-17.0); Lymphocytes # (A) 2.21 10*3/uL (0.90-5.00); Lymphocytes % (A) 12.2 %; MCH 33.3 pg (27.0-32.0); MCV 92.3 fL (80.0-97.0); Mean Platelet Volume 9.6 fL (9.5-12.2); Monocytes % (A) 7.2 %; Neutrophils # (A) 14.19 10*3/uL (1.80-7.70); Neutrophils % (A) 78.5 %; Platelet Count 335 10*3/uL (140-440); RDW 11.5 % (11.5-14.5); WBC 18.08 10*3/uL (4.50-10.00)
[2024-08-12 02:18] LABS: ALT 38 U/L (4-49); AST 28 U/L (17-59); African American GFR (CKD) >90 (>60 ml/min/1.73 sqM); Albumin 4.3 g/dL (3.5-5.0); Alkaline Phosphatase 69 U/L (38-126); Anion Gap 7 mmol/L; Blood Urea Nitrogen 13 mg/dL (9-20); Calcium 9.8 mg/dL (8.4-10.2); Carbon Dioxide 32 mmol/L (22-30); Chloride 95 mmol/L (98-107); Glucose 102 mg/dL (74-99); Lipase 31 U/L (23-300); Non-African American GFR(CKD) >90 (>60 ml/min/1.73 sqM); Sodium 134 mmol/L (137-145); Total Bilirubin 0.4 mg/dL (0.2-1.3); Total Protein 6.7 g/dL (6.3-8.2)
[2024-08-12 02:52] LABS: Appearance,Urine Clear (Clear); Bilirubin,Urine Negative (Negative); Blood,Urine Negative (Negative); Color,Urine Colorless; Glucose,Urine (UA) Negative (Negative); Ketones,Urine Negative (Negative); Leukocyte Esterase,Urine Negative (Negative); Nitrite,Urine Negative (Negative); PH, Urine 6.5 (5.0-8.0); Protein,Urine Negative (Negative); Urobilinogen,Urine <2.0 mg/dL (<2.0)
[2024-08-12 03:02] LABS: Specific Gravity,Urine >1.050 (1.001-1.035)
--- NOTE | 2024-08-12 03:02 | CT ---
EXAM: CT Abdomen and Pelvis With Intravenous Contrast CLINICAL HISTORY: ITS.REASON CT Reason: abdominal pain, acute, nonlocalized TECHNIQUE: Axial computed tomography images of the abdomen and pelvis with intravenous contrast. CTDI is 36.97 mGy and DLP is 1995 mGy-cm. This CT exam was performed using one or more of the following dose reduction techniques: automated exposure control, adjustment of the mA and/or kV according to patient size, and/or use of iterative reconstruction technique. COMPARISON: CT chest/abdomen/pelvis on 01/23/2022 FINDINGS: Lung bases: Mild dependent atelectasis bilaterally. ABDOMEN: Liver: Hepatic steatosis. Gallbladder and bile ducts: Unremarkable. No calcified stones. No ductal dilation. Pancreas: Unremarkable. No mass. No ductal dilation. Spleen: Unremarkable. No splenomegaly. Adrenals: Unremarkable. No mass. Kidneys and ureters: Unremarkable. No hydronephrosis or obstructing ureteral stone. Stomach and bowel: Colon is distended with gas and stool. Mild surrounding fat stranding/edema. Component of colitis is not excluded. No definite obstructing lesion. No small bowel obstruction. Evaluation of the stomach is limited by underdistention. PELVIS: Appendix: Normal appendix. Bladder: Unremarkable. No mass. Reproductive: Unremarkable as visualized. ABDOMEN and PELVIS: Intraperitoneal space: Unremarkable. No free air. No significant fluid collection. Bones/joints: No acute fracture. No dislocation. Soft tissues: Body wall edema. Vasculature: Unremarkable. No abdominal aortic aneurysm. Lymph nodes: Unremarkable. No enlarged lymph nodes. IMPRESSION: Colon is distended with gas and stool. Mild surrounding fat stranding/edema. Component of colitis is not excluded. No definite obstructing lesion. No small bowel obstruction.
[2024-08-12 03:19] VITALS: BP 148/95; PULSE 86; TEMP 98.8
== END 2024-08-12 04:05 | disposition home or self-care (01) ==
LOC: EC 23:33
DX: K59.00 Constipation, unspecified (principal); F17.200 Nicotine dependence, unspecified, uncomplicated; Z88.0 Allergy status to penicillin
CPT/HCPCS: 36415; 80053; 83605; 83690; 85025; 81003; 74177; 99285; 96365; 96375; J0131; J1885; Q9967